=== PATIENT | female | born 1975 | race Caucasian/White ===

== ENCOUNTER → 2016-06-10 | Outpatient (CLI) | payer OTHER ==
[~2016-06-10] MED LIST: ACET-1311 PO; CYAN10005 PO; CYM/30 PO; DOXE10CA PO; DULA0.5I PO; DULO1CAP40 PO; ERGO1TAB12 PO; GEMF600T3 PO; HMLI SC; INSDGI SC; INSHNI SC; INSU100I SC; INSUINJ SC; LISI-725 PO; MEDR150I IM; METF-384 PO; NORE-18 PO; OMEP40CA PO; PRAV20TA PO; PRED20TA2 PO; SULF800T23 PO
--- NOTE | 2016-06-10 11:05 | DIAGNOSTIC IMAGING REPORT ---
RIGHT PELVIS/UNILATERAL HIP 2-3 VIEW CLINICAL HISTORY: Right hip pain. COMPARISON: CT of the abdomen and pelvis March 10, 2015. FINDINGS: This exam is compromised by suboptimal penetration. The sacroiliac joints and symphysis pubis are intact. No acute pelvic or hip fracture is identified. Alignment of the right hip is anatomic. Joint spaces preserved. There is mild osteophytosis of the right hip. IMPRESSION: 1. Mild arthritis of the right hip. 2. No acute fracture within the pelvis or hips although sensitivity is diminished due to suboptimal penetration. Electronically signed by: Yoel Drake M.D. 06/10/2016 11:03 AM
== END | disposition home or self-care (01) ==
LOC: C.RDSM 17:04
PROVIDERS: ATTEND Family Medicine
DX: M16.11 Unilateral primary osteoarthritis, right hip (principal)

== ENCOUNTER → 2016-07-09 | Outpatient (CLI) | payer OTHER ==
[2016-07-09 14:42] LABS: ALT/SGPT 24 U/L (12-78); BLOOD UREA NITROGEN 12 mg/dl (7-18); BUN/CREATININE RATIO 11.1 (10-20); CALCIUM 8.9 mg/dl (8.5-10.1); CARBON DIOXIDE 21 mmol/L (21-32); CHLORIDE 107 mmol/L (98-107); GLUCOSE 173 mg/dl (70-99); POTASSIUM 4.1 mmol/L (3.5-5.1); SODIUM 141 mmol/L (136-145)
[2016-07-09 14:52] LABS: ALB/GLOB RATIO 0.9 (0.9-2); ALKALINE PHOSPHATASE 50 U/L (45-117); AST/SGOT 17 U/L (15-37); THYROID STIMULATING HORMONE 0.752 uIu/ml (0.300-4.500)
[2016-07-10 06:06] LABS: ESTIMATED AVERAGE GLUCOSE 166 mg/dl; HA1C FLAG Normal (Normal)
== END | disposition home or self-care (01) ==
LOC: C.LAB1850 12:37
PROVIDERS: ATTEND Family Medicine
DX: E11.65 Type 2 diabetes mellitus with hyperglycemia (principal); E53.8 Deficiency of other specified B group vitamins; N91.2 Amenorrhea, unspecified; E55.9 Vitamin D deficiency, unspecified

== ENCOUNTER → 2016-08-04 | Outpatient (CLI) | payer OTHER ==
--- NOTE | 2016-08-04 14:37 | MAMMOGRAPHY REPORT ---
BILATERAL DIGITAL SCREENING MAMMOGRAM WITH CAD: 08/04/2016 CLINICAL HISTORY: Routine screening examination. TECHNIQUE: Bilateral CC and MLO views were obtained. Current study was also evaluated with a Comput er Aided Detection (CAD) system. COMPARISON: Comparison is made to exams dated: 03/09/2015 mammogram and 08/24/2013 mammogram - [facility]. BREAST COMPOSITION: The tissue of both breasts is almost entirely fatty. FINDINGS: There are stable benign calcifications in both breasts. No suspicious mass, architectur al distortion or cluster of microcalcifications is seen. IMPRESSION: ACR BI-RADS CATEGORY 2: BENIGN There is no mammographic evidence of malignancy. A 1 year screening mammogram is recommended. The p atient will receive written notification of the results. Approximately 10% of breast cancers are not detected with mammography. A negative mammographic repor t should not delay biopsy if a clinically suggestive mass is present. Janeth Herbert M.D. ay/:08/04/2016 13:47:41 [employer] Manager Consultant: Lupe RODRÍGUEZ(Eli)(Peter), [facility] letter sent: Normal 1/2 BI-RADS Code: ACR BI-RADS Category 2: Benign
== END | disposition home or self-care (01) ==
LOC: C.MAMM 10:36
PROVIDERS: ATTEND Internal Medicine
DX: Z12.31 Encounter for screening mammogram for malignant neoplasm of breast (principal)

== ENCOUNTER → 2016-08-11 | Outpatient (CLI) | payer OTHER ==
--- NOTE | 2016-08-12 05:46 | SPLIT NIGHT TECHNICIAN REPORT ---
[facility] Split Night Polysomnogram - Glaucoma Specialist Report Study date: 08/11/2016 Referring Physician: Name: DEEPA BUENROSTRO Glaucoma Specialist: ROXANNE Wade. Date of : 1975 Height: 41 years, Height 5' 0" Sex: Female Weight: 350 lbs Age: 41 Neck Circum: 21.5 inches BMI: Medications: 68.35 Gemfibrozil 600 mg, Cymbalta 60 mg, Pravastatin 40 mg, Prilosec 40 mg, Doxepin 10 mg, Insulin, Vitamin B-12, Lisinopril 20 mg, Metformin 1000 mg Patient History 41 yr. old female here for a possible split night sleep study with ETC02. Patient complains of snoring. ESS 18/20 (does not drive) Parameters Monitored NPSG: E1-M2, E2-M1, Fp1-M2, Fp2-M1, F3-M2, F4-M2, F4-M1, C3-M2, C4-M2, C4-M1, O1-M2, O2-M2, O2-M1, T3-M2, T4-M1, P3-M2, P4-M1, CHIN1, CHIN2, HR, EKG, Legs, PFLOW, SNOR, FLOW, CFLOW, Tidal Volume, THOR, ABDO, SpO2, PLTH, CPRESS, ETCO2 Wave, ETCO2, pH SLEEP SUMMARY DATA DIAGNOSTIC TREATMENT Lights Out: 9:25:53 PM NONE Lights On: 12:27:53 AM 5:27:23 AM Total Recording Time (TRT): 181.0 min. 294.0 min. Total Sleep Time (TST): 65.5 min. 281.5 min. NREM Time: 65.5 min. 229.5 min. REM Time: 0.0 min. 52.0 min. Sleep Period Time (SPT): 71.5 min. 291.0 min. Sleep Efficiency (SE): 36 % 96 % Sleep Latency: 109.5 min. NONE min. Arousal Index: 48.5 4.7 PAP Treatment Levels: 4, 5, 6, 7, 8, 9, 10, 11, 12 * Optimal Pressure(s) SLEEP STAGING DATA DIAGNOSTIC TREATMENT Duration (min) TST % Duration (min) TST % Stage Wake: 115.5 min. -- 12.5 min. -- WASO: 7.0 min. -- 9.5 min. -- NREM: 65.5 min. 100 % 229.5 min. 82 % Stage N1: 8.5 min. 13 % 6.0 min. 2 % Stage N2: 57.0 min. 87 % 130.5 min. 46 % Stage N3: 0.0 min. 0 % 93.0 min. 33 % REM: 0.0 min. 0 % 52.0 min. 18 % POSITIONAL DATA Event Count Index Event Count Index Supine: 139 134.3 67 14.3 Supine NREM: 139 134.3 64 16.7 Supine REM: N/A N/A 3 3 Non-Supine: 1 17.5 N/A N/A Non-Supine NREM: 1 17.5 N/A N/A Non-Supine REM: N/A N/A N/A N/A AROUSAL SUMMARY DATA: Event Count Index Event Count Index Apnea Arousals: 0 0.0 1 3.8 Hypopnea Arousals: 32 29.3 1 0.2 Snore Arousals: 12 11.0 7 1.5 PLM Arousals: 2 1.8 0 0.0 Non-Specific Arousals: 5 4.6 6 1.3 Total Arousals: 53 48.5 22 4.7 MYOCLONUS (PLM) Event Count Index Event Count Index PLM: 2 1.8 0 0.0 PLM AROUSAL: 2 1.8 0 0.0 PLM W/O AROUSAL 2 1.8 0 0.0 PLM W/RESP EVENT 0 0.0 0 0.0 MYOCLONUS (PLM) Event Count Index Event Count Index LM: 3 19.2 20 4.3 LM AROUSAL: 3 2.7 7 1.5 LM W/O AROUSAL LM W/RESP EVENT LM NON SPECIFIC 9 8.2 12 2.6 HEART RATE DATA DIAGNOSTIC TREATMENT Sleep (bpm): 93 86 REM (bpm): N/A 94 NREM (bpm): 91 94 Tachycardia Count: 0 0 Tachycardia Duration: 0.00 0 Bradycardia Count: 0 0 Bradycardia Duration: 0.00 0 DIAGNOSTIC PORTION TREATMENT PORTION RESPIRATORY DATA Event Count Index Event Count Index AHI: -- 128.2 -- 14.3 RDI: -- 128.2 -- 14 Obstructive Apnea: 0 0.0 12 2.6 Central Apnea: 0 0.0 6 1.3 Mixed Apnea: 0 0.0 0 0.0 Hypopnea: 140 128.2 49 10.4 RERA: 0 0.0 0 0.0 Total Apneas: 0 0.0 18 3.8 RESPIRATORY DATA REM NREM SLEEP REM NREM SLEEP Supine Position: Obstructive Apneas: N/A 0 0 0 12 12 Central Apneas: N/A 0 0 0 6 6 Mixed Apneas: N/A 0 0 0 0 0 Hypopneas: N/A 139 139 3 46 49 RERA N/A 0 0 0 0 0 Total Supine Events: N/A 139 139 3 64 67 Supine AHI: N/A 134.3 134.3 3 16.7 14.3 Supine RDI: N/A 134.3 134.3 3.5 16.7 14.3 REM NREM SLEEP REM NREM SLEEP Non-Supine Position: Obstructive Apneas: N/A 0 0 N/A N/A N/A Central Apneas: N/A 0 0 N/A N/A N/A Mixed Apneas: N/A 0 0 N/A N/A N/A Hypopneas: N/A 1 1 N/A N/A N/A RERA N/A 0 0 N/A N/A N/A Total Supine Events: N/A 1 1 N/A N/A N/A Supine AHI: N/A 17.5 17.5 N/A N/A N/A Supine RDI: N/A 17.5 17.5 N/A N/A N/A OXYGEN DESTAURATION DATA: Event Count Index Event Count Index REM Desaturations: N/A N/A 5 5.8 NREM Desaturations: 162 148.4 81 21.2 SNORE DATA DIAGNOSTIC TREATMENT Snore Time: 6.2 12:36:23 AM Snore TST%: 4 9 Snore Arousal Count: 12 7 Snore Arousal Index: 11.0 1.5 Desaturation Event Summary: Minimum %SpO2 Event Count Mean/Min/Max Duration(sec.) Desaturation Index % Time In Bed > 90 277 11.8 / 4.0 / 59.3 38.0 92.5 86 - 90 9 6.2 / 4.0 / 10.0 18.2 6.3 81 - 85 0 N/A 0.0 1.2 76 - 80 0 N/A 0.0 0.1 71 - 75 0 N/A 0.0 0.0 66 - 70 0 N/A 0.0 0.0 61 - 65 0 N/A 0.0 0.0 56 - 60 0 N/A 0.0 0.0 51 - 55 0 N/A 0.0 0.0 < 50 0 N/A 0.0 0.0 OXYGEN SATURATION DATA DIAGNOSTIC TREATMENT SpO2 Mean Sleep: 91 % 94 % SpO2 Mean REM: N/A % 94 % SpO2 Mean NREM: 91 % 94 % SpO2 Minimum Sleep: 80 % 84 % SpO2 Minimum REM: N/A % 89 % SpO2 Minimum NREM: 80 % 84 % Time Below 90% (TST): 18.0 3.8 Time Below 88% (TST): 10.1 0.4 Total REM NREM Awake <50% 0.0 min. 0.0 min. 0.0 min. 0.0 min. 51 - 60% 0.0 min. 0.0 min. 0.0 min. 0.0 min. 61 - 70% 0.0 min. 0.0 min. 0.0 min. 0.0 min. 71 - 80% 0.3 min. 0.0 min. 0.3 min. 0.0 min. 81 - 90% 35.2 min. 0.8 min. 31.1 min. 3.2 min. 91 - 100% 437.6 min. 51.2 min. 261.6 min. 124.8 min. Average 93 94 93 93 Minimum SpO2 80 89 80 82 Desaturation Event Index 35.6 5.8 49.4 16.4 # Desat. Events below 89% 127 N/A 125 2 Time(%) with Saturation below 89% 3.1 0.0 3.1 0.1 Time(min.) with Saturation below 89% 14.9 0.0 14.6 0.3 Recording Glaucoma Specialist Comments: MS. Buenrostro slept in the right and supine positions. No cardiac arrhythmia or PLMs noted. No bruxism noted. Snoring was noted and scored as a 5 on a scale of 0 through 5. (0=no snoring, 5=snoring loud enough to be heard through a closed door or down the patel way) At 12:33 am, MS. Buenrostro has met specific Split-Night criteria during the diagnostic portion of this study. CPAP was initiated at +4 CMH2O room air and up-titrated to a optimal level of + 12 CMH2O Cflex 2 , which nearly eliminated all respiratory events and snoring. A small simplus was used during titration (she will need large headgear with a small size mask). MS. Buenrostro did not wake to use the restroomduring the night. MS. Buenrostro stated, "(Example) I did not sleep as well as I do when I am in my own bed". The final report will be interpreted and signed by a sleep physician. The completed physician report will then be placed in the patient medical record. Therapy Event: Therapy (cm H20) 0 4 5 6 7 8 9 10 11 12 Total Time at Pressure (min.) 181.0 6.5 4.8 7.3 11.4 16.2 24.9 57.1 118.2 47.6 TST at Pressure (min.) 65.5 3.5 4.8 7.3 11.4 16.2 24.9 55.1 111.2 47.1 # Periods 1 1 1 1 1 1 1 1 1 1 Sleep Onset (min.) 109.5 3.0 0.0 0.0 0.0 0.0 0.0 0.0 0.0 0.0 REM Onset (min.) N/A N/A N/A N/A N/A N/A N/A 49.9 0.0 30.1 Sleep Efficiency % 36 54 100 100 100 100 100 96 94 98 Wakefulness (%) 63.8 45.7 0.0 0.0 0.0 0.0 0.0 3.5 5.9 1.1 Wakefulness (min.) 115.5 3.0 0.0 0.0 0.0 0.0 0.0 2.0 7.0 0.5 NREM 1 (%) 4.7 23.2 0.0 6.8 0.0 0.0 0.0 1.8 0.8 4.2 NREM 1 (min.) 8.5 1.5 0.0 0.5 0.0 0.0 0.0 1.0 1.0 2.0 NREM 2 (%) 31.5 31.0 100.0 63.5 0.0 41.8 61.8 54.9 30.4 62.2 NREM 2 (min.) 57.0 2.0 4.8 4.7 0.0 6.8 15.4 31.4 35.9 29.6 NREM 3 (%) 0.0 0.0 0.0 29.7 100.0 58.2 38.2 27.1 37.2 2.1 NREM 3 (min.) 0.0 0.0 0.0 2.2 11.4 9.4 9.5 15.5 44.0 1.0 REM (%) 0.0 0.0 0.0 0.0 0.0 0.0 0.0 12.7 25.6 30.5 REM (min.) 0.0 0.0 0.0 0.0 0.0 0.0 0.0 7.2 30.3 14.5 # Arousals 53 0 2 1 1 1 0 7 6 4 Arousal Index 48.5 0.0 24.8 8.2 5.3 3.7 0.0 7.6 3.2 5.1 # Snore 265 23 42 113 237 262 385 197 101 1 Snore Index 242.7 393.8 521.5 923.1 1,247.7 971.0 929.3 214.5 54.5 1.3 AHI 128.2 102.7 136.6 8.2 31.6 44.5 16.9 10.9 5.9 3.8 AHI Supine 134.3 102.7 136.6 8.2 31.6 44.5 16.9 10.9 5.9 3.8 AHI Non-Supine 17.5 N/A N/A N/A N/A N/A N/A N/A N/A N/A NREM AHI 128.2 102.7 136.6 8.2 31.6 44.5 16.9 11.3 8.2 1.8 REM AHI N/A N/A N/A N/A N/A N/A N/A 8.3 0.0 8.3 RDI 128.2 102.7 136.6 8.2 31.6 44.5 16.9 10.9 5.9 3.8 # Obstructive 0 1 2 0 0 1 1 1 6 0 # Central Ap 0 0 0 0 0 1 0 2 3 0 # Mixed 0 0 0 0 0 0 0 0 0 0 # Hypopneas 140 5 9 1 6 10 6 7 2 3 RERAS 0 0 0 0 0 0 0 0 0 0 Total Respiratory Events 140 6 11 1 6 12 7 10 11 3 Time Below SpO2 89.00% (min.) 13.5 0.0 0.6 0.0 0.1 0.1 0.0 0.1 0.2 0.1 Mean NREM SpO2 (%) 91 92 91 92 92 92 93 93 94 95 Mean REM SpO2 (%) N/A N/A N/A N/A N/A N/A N/A 93 94 94 Mean Sleep SpO2 (%) 91 92 91 92 92 92 93 93 94 94 Min NREM SpO2 (%) 80 87 84 88 88 88 89 87 86 88 Min REM SpO2 (%) N/A N/A N/A N/A N/A N/A N/A 90 91 89 Position Supine (min.) 62.1 3.5 4.8 7.3 11.4 16.2 24.9 55.1 111.2 47.1 Position Non-supine (min.) 3.4 0.0 0.0 0.0 0.0 0.0 0.0 0.0 0.0 0.0 LM Index Sleep 21.1 17.1 12.4 0.0 0.0 3.7 4.8 5.4 4.3 2.5 LM Index NREM 21.1 17.1 12.4 0.0 0.0 3.7 4.8 6.3 5.2 3.7 LM Index REM N/A N/A N/A N/A N/A N/A N/A 0.0 2.0 0.0 Mean Heart Rate (bpm) 93 87 87 88 91 91 90 88 84 81 Min Heart Rate (bpm) 83 83 82 83 86 83 83 72 64 58
--- NOTE | 2016-08-26 09:15 | POLYSOMNOGRAPH REPORT ---
REFERRING PERSON: Dr. Rajesh Baer. GERICARE AIDE: Brooke Law. Ms. Buenrostro is a 41-year-old female, sent for a possible split-night sleep study. She complains of snoring. Her Alexander sleepiness scale score on the evening of this study is 18/20 as this patient does not drive. BMI is markedly elevated at 68.35. Following the technical and digital specifications of the [place] [employer] (AASM) a standard diagnostic polysomnogram was performed monitoring EEG, EOG, EMG (chin and leg deviations), oxygen saturation, body position, digital video, respiratory effort and airflow. The sleep Stage and event scoring was based on the AASM Manual for the Scoring of Sleep and Associated Events 2007 edition. Apneas are defined as a drop in the peak thermal sensor excursion by >90% of baseline for at least 10 seconds. Hypopneas were scored using the 4% oxygen desaturation rule ([employer]A-[employer]) and a decrease in the nasal pressure excursions by >30% of baseline for at least 10 seconds. Respiratory effort-related arousal (RERA's) is defined as a sequence of breaths lasting at least 10 seconds characterized by increasing respiratory effort or flattening of the nasal pressure waveform leading to an arousal from sleep when the sequence of breaths does not meet criteria for an apnea or hypopnea. Apnea Hypopnea index (AHI) is defined as the number of apneas and hypopneas occurring in an hour of sleep. Respiratory disturbance index (RDI) is defined as the number of apneas, hypopneas, and RERA's occurring in an hour of sleep. Ms. Buenrostro did qualify for a split-night sleep study. She was observed for 65.5 minutes of sleep time. During that time, she had 13% in N1 sleep and 87% in N2 sleep. There were 53 cortical arousals from sleep. Twelve of these arousals were due to snoring, 2 due to periodic limb movements of sleep, 5 were nonspecific and the remaining were due to hypopneic events. There were 2 periodic limb movements, neither of which resulted in arousals. Mean saturation during the diagnostic portion of this test was 91% with desaturations to 80% with respiratory events. There were no obstructive, central or mixed apneas during observation; however, there were 140 hypopneas for an apnea hypopnea index 128.2 consistent with very severe sleep apnea. Therefore, at 12:30 a.m., this patient was started on CPAP therapy. She chose a small Simplus full facemask for this titration. This is to be sized with a large head gear. Over the remainder of the night, she was titrated from a CPAP pressure of 4 to a CPAP pressure of 12. Increasing pressures improved hypopneic events. She was observed on a pressure of 12 for 47.1 minutes of supine sleep. During that time, she had 14.5 minutes of REM sleep. AHI and RDI on this pressure were both 3.8. Saturations were less than 89% for 0.1 minutes of recording time. IMPRESSION AND PLAN: 1. A 41-year-old female with morbid obesity with evidence of severe sleep apnea on this split-night sleep study. This patient did have improvement and elimination of both hypoxemia and apnea on CPAP at a pressure of 12. I would recommend that she be started on CPAP at a pressure of 12 at home. A download from her machine should be reviewed in 1 month both to check compliance as well as AHI and further pressure adjustments should occur at that time. 2. Weight loss should be strongly encouraged.
== END | disposition home or self-care (01) ==
LOC: C.NEUR 21:00
PROVIDERS: ATTEND Family Medicine
DX: R06.83 Snoring (principal); E66.01 Morbid (severe) obesity due to excess calories; R35.1 Nocturia; I10 Essential (primary) hypertension; F51.11 Primary hypersomnia; F32.9 Major depressive disorder, single episode, unspecified

== ENCOUNTER → 2016-09-30 | Outpatient (CLI) | payer OTHER ==
--- NOTE | 2016-09-30 14:39 | DIAGNOSTIC IMAGING REPORT ---
RIGHT KNEE 4 OR MORE CLINICAL HISTORY: Right knee pain COMPARISON: None. DISCUSSION: There are mild osteoarthritic changes. There are small dorsal patellar spurs. There are no acute fractures. No destructive lesions are evident. Moderate irregularity of the superior patellar pole, is unlikely to be acute. IMPRESSION: Mild osteophytic change. No evidence of acute fracture. Electronically signed by: Trung Mishra M.D. 09/30/2016 2:37 PM Dictated Date/Time: 09/30/2016 2:36 PM
== END | disposition home or self-care (01) ==
LOC: C.RDSM 13:54
PROVIDERS: ATTEND Family Medicine
DX: M25.561 Pain in right knee (principal)

== ENCOUNTER 2016-11-17 08:26 | Emergency (ER) | payer OTHER ==
[~2016-11-17] VITALS: Ht 152.4 cm; Wt 165.5 kg
[~2016-11-17 08:26] MED LIST changes: -CYM/30 PO; -DULA0.5I PO; -ERGO1TAB12 PO; -INSHNI SC; -INSU100I SC; -NORE-18 PO; -PRED20TA2 PO; -SULF800T23 PO
[2016-11-17 08:33] VITALS: TEMP 37.1; Ht 152.4 cm; Wt 165.5 kg
[2016-11-17 08:34] VITALS: O2SAT 97
[2016-11-17] MEDS ORDERED: METHYLPREDNISOLONE 125 MG VIAL IV STA (08:40)
[2016-11-17] MEDS ORDERED: ALBUT/IPRATROP 3MG/0.5MG NEB 3 ML VIAL INH ONE (08:45)
[2016-11-17 08:55] VITALS: PULSE 102; O2SAT 94
[2016-11-17 09:11] LABS: BASO % 0.8 %; BASO ABS # 0.05 K/uL (0-0.2); COMPLETE YES; EOS % 2.1 %; HEMATOCRIT 39.5 % (37-47); IG% 0.5 %; LYMPH % 28.8 %; MEAN CELL VOLUME 86.8 fL (80-100); MEAN CORPUSCULAR HEMOGLOBIN 27.9 pg (25-34); MEAN CORPUSCULAR HGB CONC 32.2 g/dl (32-36); MEAN PLATELET VOLUME 8.8 fL (7.4-10.4); MONO % 6.1 %; NEUT % 61.7 %; PLATELET COUNT 310 K/uL (130-400); RED BLOOD COUNT 4.55 M/uL (4.2-5.4); WHITE BLOOD COUNT 6.24 K/uL (4.8-10.8)
--- NOTE | 2016-11-17 09:15 | EMERGENCY ROOM VISIT NOTE ---
History Report prepared by Sriram: Sonia Rockwell Under the Supervision of: Dr. Vadim Bender M.D. First contact with patient: 08:35 Chief Complaint: RESPIRATORY PROBLEMS Stated Complaint: ILLNESS History of Present Illness The patient is a 41 year old female who presents to the Emergency Room with complaints of persistent respiratory problems that started 4 days ago. The patient came to the ED via ambulance from home and was given a DuoNeb en route. She states that the breathing treatment somewhat relieved her symptoms. The patient's boyfriend states that the patient started to feel ill 4 days ago. The patient states that she is experiencing some shortness of breath, but denies fevers, cough, sore throat, abdominal pain, and diarrhea. She states that she experienced nausea and vomiting last night. The patient has been taking DayQuil every 6 hours for the past 1.5 days without any improvement of her symptoms. She did take any DayQuil today. The patient has not eaten anything today. The patient's boyfriend states that the patient's symptoms worsened this morning, which is why they called the ambulance. Source of History: patient Onset: 4 days ago Position: chest Quality: other (Respiratory problems) Timing: other (persistent) Modifying Factors (Relieving): other (None) Associated Symptoms: + nausea, + vomiting, No fevers, No sorethroat, No cough, No abdominal pain, No diarrhea Review of Systems See HPI for pertinent positives & negatives. A total of 10 systems reviewed and were otherwise negative. Past Medical & Surgical Medical Problems: (1) History of periumbilical repair Surgical Problems: (1) History of cholecystectomy (2) History of tonsillectomy Family History Diabetes mellitus Gallbladder disease Heart disease Hypertension Social History Smoking Status: Former Smoker Drug Use: none Marital Status: in relationship Housing Status: lives with significant other Occupation Status: disabled Current/Historical Medications Scheduled Cyanocobalamin (Vitamin B-12), 1,000 MCG PO DAILY Doxepin (Sinequan), 10 MG PO HS Dulaglutide (Trulicity), 1.5 MG PO WK Duloxetine HCl (Cymbalta), 30 MG PO DAILY Ergocalciferol (Vitamin D2), 1.25 MG PO 3XWK Gemfibrozil (Lopid), 600 MG PO BID Insulin Glargine (Lantus), 120 UNITS SC QPM Insulin Human NPH (Humulin N), 100 UNITS SC QPM Insulin Lispro (Human) (Humalog), 55 UNITS SC AMPM Insulin Lispro (Human) (Humalog), 30 UNITS SC AFTERNOON Lisinopril (Zestril), 20 MG PO DAILY Metformin Hcl (Glucophage), 1,000 MG PO BIDM Norethindrone (Contraceptive) (Sharobel), 0.35 MG PO DAILY Pravastatin (Pravachol ), 40 MG PO HS Prednisone (Prednisone Tab), 0 PO DAILY Sulfamethoxazole-Trimethoprim (Bactrim Ds 800MG/160MG), 1 TAB PO BID Allergies Coded Allergies: Lactose. (Verified Allergy, Unknown, diarrhea/abdominal pain, 04/11/15) Penicillins (Verified Allergy, Unknown, AMOXICILLIN, AMPICILLIN, 05/09/13) Physical Exam Vital Signs Date Time Temp Pulse Resp B/P (MAP) Pulse Ox O2 Delivery O2 Flow Rate FiO2 11/17/16 13:37 98 16 126/74 97 11/17/16 12:37 116 11/17/16 11:30 115 114/75 92 Room Air 11/17/16 10:30 117 24 133/76 94 Room Air 11/17/16 08:55 102 20 94 Room Air 11/17/16 08:46 100 11/17/16 08:35 94 Room Air 11/17/16 08:34 97 Room Air 11/17/16 08:33 37.1 102 26 172/96 94 Room Air Physical Exam GENERAL: Patient is a healthy-appearing well-nourished female HEAD: Normocephalic atraumatic EYES: Ocular movements intact pupils equal and react to light OROPHARYNX mucous membranes are moist no exudates present no erythema or edema present NECK: Supple no nuchal rigidity CHEST: Good equal expansion LUNGS: Clear and equal to auscultation CARDIAC: Normal S1 and S2 ABDOMEN: Soft nontender no guarding BACK: No CVA tenderness EXTREMITIES: No pain upon palpation normal muscle strength in all groups no clubbing cyanosis or edema NEURO: Patient is following commands is answering questions appropriately. Alert and oriented x3 Cranial Nerves 2-12 grossly intact Medical Decision & Procedures ER Provider Diagnostic Interpretation: Radiology results as stated below per my review and radiologist interpretation: CHEST ONE VIEW PORTABLE FINDINGS: Cardiac silhouette is moderately enlarged. This has increased in size. There is mild pulmonary vascular congestion without overt edema. No pleural effusions. No pneumothorax. No new focal lung consolidations. IMPRESSION: Moderate enlargement of the cardiac silhouette which has increased in size. Mild pulmonary vascular congestion without overt edema. Electronically signed by: Lauro Mendez M.D. 11/17/2016 9:48 AM Dictated Date/Time: 11/17/2016 9:47 AM Laboratory Results 11/17/16 09:00 Red Blood Count 4.55, Mean Corpuscular Volume 86.8, Mean Corpuscular Hemoglobin 27.9, Mean Corpuscular Hemoglobin Concent 32.2, Mean Platelet Volume 8.8, Neutrophils (%) (Auto) 61.7, Lymphocytes (%) (Auto) 28.8, Monocytes (%) (Auto) 6.1, Eosinophils (%) (Auto) 2.1, Basophils (%) (Auto) 0.8, Neutrophils # (Auto) 3.85, Lymphocytes # (Auto) 1.80, Monocytes # (Auto) 0.38, Eosinophils # (Auto) 0.13, Basophils # (Auto) 0.05 11/17/16 09:00 Test 11/17/16 09:00 11/17/16 09:50 11/17/16 10:42 11/17/16 12:40 White Blood Count 6.24 K/uL (4.8-10.8) Red Blood Count 4.55 M/uL (4.2-5.4) Hemoglobin 12.7 g/dL (12.0-16.0) Hematocrit 39.5 % (37-47) Mean Corpuscular Volume 86.8 fL (80-100) Mean Corpuscular Hemoglobin 27.9 pg (25-34) Mean Corpuscular Hemoglobin Concent 32.2 g/dl (32-36) Platelet Count 310 K/uL (130-400) Mean Platelet Volume 8.8 fL (7.4-10.4) Neutrophils (%) (Auto) 61.7 % Lymphocytes (%) (Auto) 28.8 % Monocytes (%) (Auto) 6.1 % Eosinophils (%) (Auto) 2.1 % Basophils (%) (Auto) 0.8 % Neutrophils # (Auto) 3.85 K/uL (1.4-6.5) Lymphocytes # (Auto) 1.80 K/uL (1.2-3.4) Monocytes # (Auto) 0.38 K/uL (0.11-0.59) Eosinophils # (Auto) 0.13 K/uL (0-0.5) Basophils # (Auto) 0.05 K/uL (0-0.2) RDW Standard Deviation 48.5 fL (36.4-46.3) RDW Coefficient of Variation 15.2 % (11.5-14.5) Immature Granulocyte % (Auto) 0.5 % Immature Granulocyte # (Auto) 0.03 K/uL (0.00-0.02) Anion Gap 9.0 mmol/L (3-11) Est Creatinine Clear Calc Drug Dose 142.8 ml/min Estimated GFR () 113.1 Estimated GFR (Non- 97.6 BUN/Creatinine Ratio 17.1 (10-20) Calcium Level 9.0 mg/dl (8.5-10.1) Total Bilirubin 0.3 mg/dl (0.2-1) Aspartate Amino Transf (AST/SGOT) 19 U/L (15-37) Alanine Aminotransferase (ALT/SGPT) 25 U/L (12-78) Alkaline Phosphatase 57 U/L (45-117) Total Protein 7.2 gm/dl (6.4-8.2) Albumin 3.5 gm/dl (3.4-5.0) Globulin 3.7 gm/dl (2.5-4.0) Albumin/Globulin Ratio 0.9 (0.9-2) Influenza Type A (RT-PCR) Neg for Influ A (NEG) Influenza Type A Antigen Neg for Influ A (NEG) Influenza Type B Antigen Neg for Influ B (NEG) Influenza Type B (RT-PCR) Neg for Influ B (NEG) Bedside Glucose 187 mg/dl (70-90) Urine Color DK YELLOW Urine Appearance CLOUDY (CLEAR) Urine pH 5.0 (4.5-7.5) Urine Specific Howell 1.034 (1.000-1.030) Urine Protein 1+ (NEG) Urine Glucose (UA) TRACE (NEG) Urine Ketones 4+ (NEG) Urine Occult Blood NEG (NEG) Urine Nitrite NEG (NEG) Urine Bilirubin NEG (NEG) Urine Urobilinogen NEG (NEG) Urine Leukocyte Esterase NEG (NEG) Urine WBC (Auto) 1-5 /hpf (0-5) Urine RBC (Auto) 0-4 /hpf (0-4) Urine Hyaline Casts (Auto) 1-5 /lpf (0-5) Urine Epithelial Cells (Auto) >30 /lpf (0-5) Urine Bacteria (Auto) NEG (NEG) Urine Crystals CALCIUM OXALATE (NONE Urine Mucus PRESENT (NONE PRSENT) Urine Yeast (Auto) (NONE PRSENT) Labs reviewed by ED physician. Medications Administered Medications (Trade) Dose Ordered Sig/Yoni Route Start Time Stop Time Status Last Admin Dose Admin Albuterol/ Ipratropium (Duoneb) 12 ml ONE ONCE INH 11/17/16 08:45 11/17/16 08:46 DC 11/17/16 09:00 12 ML Methylprednisolone Sodium Succinate (Solu-Medrol IV) 60 mg NOW STAT IV 11/17/16 08:40 11/17/16 08:42 DC 11/17/16 09:08 60 MG Sodium Chloride 1,000 ml @ 999 mls/hr Q1H1M STAT IV 11/17/16 10:46 11/17/16 11:46 DC 11/17/16 11:14 999 MLS/HR Ketorolac Tromethamine (Toradol Inj) 30 mg NOW STAT IV 11/17/16 10:46 11/17/16 10:47 DC 11/17/16 11:13 30 MG Ondansetron HCl (Zofran Inj) 4 mg NOW STAT IV 11/17/16 10:46 11/17/16 10:47 DC 11/17/16 11:13 4 MG Miscellaneous Medication (Gi Cocktail) 24 ml NOW STAT PO 11/17/16 11:07 11/17/16 11:09 DC 11/17/16 11:16 24 ML Trimethoprim/ Sulfamethoxazole (Septra Ds 800/ 160MG Tab) 1 tab NOW STAT PO 11/17/16 12:58 11/17/16 13:00 DC 11/17/16 13:22 1 TAB Albuterol (Ventolin Hfa Inhaler) 2 puffs NOW STAT INH 11/17/16 12:58 11/17/16 13:00 DC 11/17/16 13:22 2 PUFFS ECG Indication: SOB/dyspnea Rate (beats per minute): 98 Rhythm: normal sinus Findings: no acute ischemic change, no ectopy ED Course 0836: Past medical records reviewed. The patient was evaluated in room A11. A complete history and physical examination was performed. 0840: Ordered Solu-Medrol 60 mg IV 0845: Ordered DuoNeb 12 ml INH 1046: Ordered Zofran Inj 4 mg IV, Toradol Inj 30 mg IV, Sodium Chloride 1000 ml @ 999 mls/hr IV 1102: I reassessed the patient. She is resting comfortably. 1107: Ordered GI Cocktail 24 ml PO 1258: Ordered Albuterol 2 puffs INH, Trimethoprim/Sulfamethoxazole 1 tab PO 1304: Upon reexamination the patient is doing well. I discussed results and treatment plan with the patient. She verbalizes agreement and understanding. The patient is ready for discharge. Medical Decision Differential diagnosis: Etiologies such as infections, reactive airway disease, pneumonia, pneumothorax , COPD, CHF, cardiac ischemia, pulmonary embolism, musculoskeletal, gastrointestinal, as well as others were entertained. Medication Reconciliation: I attest that I have personally reviewed the patient' s current medication list. Blood Pressure Screening: Patient was found to have an elevated blood pressure and was referred to their primary care doctor for recheck and further treatment This is a 41-year-old female who presents emergency department complaining of sore throat. The patient does not appear to be in any acute distress. She is slightly wheezing before she was given a DuoNeb breathing treatment. She was given an albuterol inhaler for home. She does appear to have urinary tract infection and therefore was started on Bactrim. I do believe that the patient is well enough to be discharged home for follow-up with her primary care physician. Patient was in agreement with the treatment plan. Impression Primary Impression: Bronchitis Additional Impression: UTI (urinary tract infection) Scribe Attestation The scribe's documentation has been prepared under my direction and personally reviewed by me in its entirety. I confirm that the note above accurately reflects all work, treatment, procedures, and medical decision making performed by me. Departure Information Dispostion Home / Self-Care Prescriptions Sulfamethoxazole-Trimethoprim (Bactrim Ds 800MG/160MG) 1 Tab Tab 1 TAB PO BID for 7 Days, #14 TAB Prov: Vadim Bender MD 11/17/16 Prednisone (Prednisone Tab) 20 Mg Tab 0 PO DAILY, #7 TAB 2 TABS DAILY FOR 2 DAYS, THEN 1 TAB DAILY FOR 2 DAYS, THEN 1/2 TAB DAILY FOR 2 DAYS. Prov: Vadim Bender MD 11/17/16 Referrals Eren Caal M.D. (PCP) Forms HOME CARE DOCUMENTATION FORM, IMPORTANT VISIT INFORMATION, WORK / SCHOOL INSTRUCTIONS Patient Instructions Bronchitis Acute, [employer] Additional Instructions Use inhaler twice every 6 hours You were found to have an elevated blood pressure today (>120 sytolic or >90 diastolic). Per medicare guidelines, you need to follow up with this blood pressure screening with your Primary Care Physician (PCP). For a new PCP call [phone]. You have been examined and treated today on an emergency basis only. This is not a substitute for, or an effort to provide, complete comprehensive medical care. It is impossible to recognize and treat all injuries or illnesses in a single emergency department visit. It is therefore important that you follow up closely with Dr Caal. Call as soon as possible for an appointment. Thank you for your time and consideration. I look forward to speaking with you again soon. Please don't hesitate to call us if you have any questions. Problem Qualifiers Additional Impression: UTI (urinary tract infection) Urinary tract infection type: site unspecified Hematuria presence: without hematuria Qualified Codes: N39.0 - Urinary tract infection, site not specified
[2016-11-17] MEDS ORDERED: INSHNI SC (09:17)
[2016-11-17] MEDS ORDERED: NORE-18 PO (09:17)
[2016-11-17] MEDS ORDERED: INSDGI SC (09:17)
[2016-11-17] MEDS ORDERED: DULA0.5I PO (09:17)
[2016-11-17] MEDS ORDERED: CYM/30 PO (09:17)
[2016-11-17] MEDS ORDERED: INSU100I SC ×2 (09:17)
[2016-11-17] MEDS ORDERED: ERGO1TAB12 PO (09:17)
[2016-11-17 09:28] LABS: BUN/CREATININE RATIO 17.1 (10-20); CREATININE 0.75 mg/dl (0.60-1.20); POTASSIUM 4.2 mmol/L (3.5-5.1)
[2016-11-17 09:31] LABS: ALB/GLOB RATIO 0.9 (0.9-2)
--- NOTE | 2016-11-17 09:50 | DIAGNOSTIC IMAGING REPORT ---
CHEST ONE VIEW PORTABLE HISTORY: Short of breath. COMPARISON: Chest 04/11/2015. FINDINGS: Cardiac silhouette is moderately enlarged. This has increased in size. There is mild pulmonary vascular congestion without overt edema. No pleural effusions. No pneumothorax. No new focal lung consolidations. IMPRESSION: Moderate enlargement of the cardiac silhouette which has increased in size. Mild pulmonary vascular congestion without overt edema. Electronically signed by: Lauro Mendez M.D. 11/17/2016 9:48 AM Dictated Date/Time: 11/17/2016 9:47 AM
[2016-11-17] MEDS ORDERED: KETOROLAC TROMETHAMINE 30 MG/ML VIAL IV STA (10:46)
[2016-11-17] MEDS ORDERED: SODIUM CHLORIDE 0.9% 1000ML 1,000 ML IV STA (10:46)
[2016-11-17] MEDS ORDERED: ONDANSETRON INJ 2 MG/ML 2 ML VIAL IV STA (10:46)
[2016-11-17] MEDS ORDERED: GI COCKTAIL PO STA (11:07)
[2016-11-17] MEDS ORDERED: LIDOCAINE HCL 2% VISC SOLN 20 ML UDC ONE (11:13)
[2016-11-17] MEDS ORDERED: ALUMINUM/MAGNESIUM SUSP 30 ML UDC ONE (11:13)
[2016-11-17] MEDS ORDERED: ALBUTEROL HFA 8 GM INHALER INH STA (12:58)
[2016-11-17] MEDS ORDERED: SULFAMETHOXAZOLE/TRIMETHOPRIM DS 800/160MG TAB PO STA (12:58)
[2016-11-17] MEDS ORDERED: SULF800T23 PO (13:03)
[2016-11-17] MEDS ORDERED: PRED20TA2 PO (13:03)
[2016-11-17 13:08] LABS: INFLUENZA A PCR Neg for Influ A (NEG); INFLUENZA B PCR Neg for Influ B (NEG)
[2016-11-17 13:08] LABS: URINE APPEARANCE CLOUDY (CLEAR); URINE BILIRUBIN NEG (NEG); URINE COLOR DK YELLOW; URINE EPITHELIAL CELL AUTO >30 /lpf (0-5); URINE NITRITE NEG (NEG); URINE SPECIFIC GRAVITY 1.034 (1.000-1.030); UROBILINOGEN NEG (NEG)
[2016-11-17 13:15] LABS: MANUAL MICROSCOPIC REQUIRED? NO; REVIEW REQ? YES
[2016-11-17 13:27] LABS: URINE MUCUS PRESENT (NONE PRSENT)
[2016-11-17 13:37] VITALS: BP 126/74; PULSE 98; O2SAT 97
== END 2016-11-17 13:39 | disposition home or self-care (01) ==
LOC: EDBD 08:26 → C.EDA 08:27
DX: J40 Bronchitis, not specified as acute or chronic (principal); N39.0 Urinary tract infection, site not specified; R11.2 Nausea with vomiting, unspecified; Z83.3 Family history of diabetes mellitus; Z82.49 Family history of ischemic heart disease and other diseases of the circulatory system; Z87.891 Personal history of nicotine dependence; Z79.4 Long term (current) use of insulin

== ENCOUNTER → 2016-12-01 | Outpatient (CLI) | payer OTHER ==
[~2016-12-01] MED LIST changes: -ACET-1311 PO; +CYM/30 PO; +DULA0.5I PO; -DULO1CAP40 PO; +ERGO1TAB12 PO; -HMLI SC; +INSHNI SC; +INSU100I SC; -INSUINJ SC; -MEDR150I IM; +NORE-18 PO; -OMEP40CA PO; +PRED20TA2 PO
--- NOTE | 2016-12-01 10:43 | DIAGNOSTIC IMAGING REPORT ---
LEFT KNEE 3 VIEWS CLINICAL HISTORY: LEFT KNEE PAIN pain COMPARISON: None. DISCUSSION: Mild degenerative change patellofemoral and medial joint compartments. Lateral joint compartment is generally well preserved. Mild soft tissue edema. No acute bony abnormality. There is no evidence for soft tissue swelling. IMPRESSION: Mild degenerative change of the medial joint compartment and patellofemoral joint. No acute bony abnormality. Electronically signed by: Bartolo Smyth M.D. 12/01/2016 10:41 AM Dictated Date/Time: 12/01/2016 10:41 AM
== END | disposition home or self-care (01) ==
LOC: C.RDSM 11:45
PROVIDERS: ATTEND Family Medicine
DX: M25.562 Pain in left knee (principal)

== ENCOUNTER → 2016-12-04 | Outpatient (CLI) | payer OTHER ==
--- NOTE | 2016-12-04 11:11 | DIAGNOSTIC IMAGING REPORT ---
ULTRASOUND LEFT LOWER EXTREMITY VENOUS CLINICAL HISTORY: Left leg pain. COMPARISON STUDY: No prior studies are available for comparison at the time of dictation. TECHNIQUE: Real-time, grayscale, and color Doppler sonography of the deep veins of the left lower extremity was performed from the inguinal crease to the calf. Compression and augmentation were utilized. FINDINGS: There is no sonographic evidence of deep venous thrombosis identified in the left lower extremity. The common femoral, superficial femoral, and popliteal veins are patent and normally compressible. The greater saphenous vein and the profunda femoris vein at the junction with the common femoral vein are clear. The visualized calf veins are patent. IMPRESSION: There is no sonographic evidence of deep venous thrombosis identified in the left lower extremity. Electronically signed by: Sancho Saleh M.D. 12/04/2016 10:40 AM Dictated Date/Time: 12/04/2016 10:38 AM
== END | disposition home or self-care (01) ==
LOC: C.ULTR 09:27
PROVIDERS: ATTEND Family Medicine
DX: M79.605 Pain in left leg (principal)

== ENCOUNTER → 2017-01-22 | Outpatient (CLI) | payer OTHER ==
[2017-01-22 12:22] LABS: BLOOD UREA NITROGEN 16 mg/dl (7-18); BUN/CREATININE RATIO 22.1 (10-20); CALCIUM 9.6 mg/dl (8.5-10.1); CARBON DIOXIDE 27 mmol/L (21-32); CHLORIDE 104 mmol/L (98-107); CHOLESTEROL 174 mg/dl (0-200); CHOLESTEROL/HDL RATIO 5.6; CREATININE 0.72 mg/dl (0.60-1.20); GLUCOSE 177 mg/dl (70-99); HDL CHOLESTEROL 31 mg/dl; LDL CHOLESTEROL CALCULATED 90 mg/dl; POTASSIUM 4.1 mmol/L (3.5-5.1); SODIUM 139 mmol/L (136-145); TRIGLYCERIDES 264 mg/dl (0-150); VERY LOW DENSITY LIPOPROT CALC 53 mg/dl
[2017-01-22 12:36] LABS: ESTIMATED AVERAGE GLUCOSE 157 mg/dl; HA1C FLAG Normal (Normal)
== END | disposition home or self-care (01) ==
LOC: C.LAB1850 10:37
PROVIDERS: ATTEND Internal Medicine
DX: E11.9 Type 2 diabetes mellitus without complications (principal); E78.1 Pure hyperglyceridemia; E55.9 Vitamin D deficiency, unspecified

== ENCOUNTER → 2017-05-18 | Outpatient (CLI) | payer OTHER ==
[2017-05-18 10:23] LABS: ESTIMATED AVERAGE GLUCOSE 146 mg/dl; HA1C FLAG Normal (Normal)
[2017-05-18 10:38] LABS: ALT/SGPT 23 U/L (12-78); BLOOD UREA NITROGEN 10 mg/dl (7-18); BUN/CREATININE RATIO 12.8 (10-20); CALCIUM 9.3 mg/dl (8.5-10.1); CARBON DIOXIDE 27 mmol/L (21-32); CHLORIDE 103 mmol/L (98-107); CHOLESTEROL 186 mg/dl (0-200); CREATININE 0.75 mg/dl (0.60-1.20); GLUCOSE 102 mg/dl (70-99); POTASSIUM 3.8 mmol/L (3.5-5.1); SODIUM 139 mmol/L (136-145); TRIGLYCERIDES 239 mg/dl (0-150); VERY LOW DENSITY LIPOPROT CALC 48 mg/dl
[2017-05-18 10:40] LABS: ALKALINE PHOSPHATASE 52 U/L (45-117); AST/SGOT 17 U/L (15-37); CHOLESTEROL/HDL RATIO 4.9; HDL CHOLESTEROL 38 mg/dl; LDL CHOLESTEROL CALCULATED 100 mg/dl
== END | disposition home or self-care (01) ==
LOC: C.LAB1850 09:06
PROVIDERS: ATTEND Internal Medicine
DX: E11.49 Type 2 diabetes mellitus with other diabetic neurological complication (principal); Z79.4 Long term (current) use of insulin; E78.5 Hyperlipidemia, unspecified; E55.9 Vitamin D deficiency, unspecified

== ENCOUNTER → 2017-10-08 | Outpatient (CLI) | payer OTHER ==
[~2017-10-08] MED LIST changes: -PRED20TA2 PO
[2017-10-08 13:31] LABS: ALBUMIN 4.1 gm/dl (3.4-5.0); ALT/SGPT 20 U/L (12-78); AST/SGOT 11 U/L (15-37); BLOOD UREA NITROGEN 14 mg/dl (7-18); CALCIUM 9.4 mg/dl (8.5-10.1); CARBON DIOXIDE 26 mmol/L (21-32); CREATININE 0.93 mg/dl (0.60-1.20); GLUCOSE 136 mg/dl (70-99); POTASSIUM 4.2 mmol/L (3.5-5.1); SODIUM 140 mmol/L (136-145)
[2017-10-08 13:41] LABS: ALKALINE PHOSPHATASE 58 U/L (45-117)
[2017-10-08 13:42] LABS: FOLLICLE STIMULAT HORMONE 28.98 IU/L
[2017-10-08 14:00] LABS: HEMOGLOBIN A1C 6.6 % (4.5-5.6)
== END | disposition home or self-care (01) ==
LOC: C.LAB1850 12:12
PROVIDERS: ATTEND Obstetrics & Gynecology
DX: N91.2 Amenorrhea, unspecified (principal); E11.49 Type 2 diabetes mellitus with other diabetic neurological complication; Z79.4 Long term (current) use of insulin; E55.9 Vitamin D deficiency, unspecified; E53.8 Deficiency of other specified B group vitamins

== ENCOUNTER 2018-09-06 20:31 | Inpatient (IN) ==
[2018-09-06] MEDS ORDERED: SODIUM CHLORIDE 0.9% 1000ML 1,000 ML IV SCH (20:45)
[2018-09-06] MEDS ORDERED: ONDANSETRON INJ 2 MG/ML 2 ML VIAL IV STA (20:45)
[2018-09-06] MEDS ORDERED: HYDROmorphone INJ 0.5 MG/0.5 ML SYR IV STA (20:45)
[2018-09-06] MEDS ORDERED: ACETAMINOPHEN 500 MG TAB PO STA (20:49)
[2018-09-06] MEDS ORDERED: SODIUM CHLORIDE 0.9% 1000ML 2,000 ML IV ONE (21:15)
[2018-09-06 21:16] LABS: Basophils # (auto) 0.06 K/uL (0-0.2); Basophils % (auto) 0.4 %; Eosinophils % (auto) 0.6 %; Hematocrit (blood only) 40.7 % (37-47); Hemoglobin 13.6 g/dL (12.0-16.0); Immature Granulocytes # (auto) 0.06 K/uL (0.00-0.02); Immature Granulocytes % (auto) 0.4 %; Lymphocytes # (auto) 3.51 K/uL (1.2-3.4); Lymphocytes % (auto) 21.7 %; Mean Corpuscular Hgb Conc 33.4 g/dL (32-36); Mean Corpuscular Volume 87.5 fL (80-100); Mean Platelet Volume 8.7 fL (7.4-10.4); Monocytes # (auto) 0.79 K/uL (0.11-0.59); Monocytes % (auto) 4.9 %; Neutrophils # (auto) 11.66 K/uL (1.4-6.5); Platelet Count 450 K/uL (130-400); RDW Coefficient of Variation 15.1 % (11.5-14.5); Red Blood Count 4.65 M/uL (4.2-5.4); White Blood Count 16.18 K/uL (4.8-10.8)
[2018-09-06] MEDS: CEFEPIME 1,000 MG in SYRINGE 0 ML IV STA ×2 (21:28→21:50)
[2018-09-06 21:31] LABS: Albumin Level 3.7 gm/dl (3.4-5.0); BUN Creatinine Ratio 12.2 (10-20); Calcium 10.1 mg/dl (8.5-10.1); Creatinine Clr Calc Pharmacy 110.9 ml/min; Est GFR (Non-African American) 79.3; Potassium 3.6 mmol/L (3.5-5.1)
[2018-09-06 21:33] LABS: Albumin Globulin Ratio 0.9 (0.9-2); Bilirubin,Total 0.3 mg/dl (0.2-1); Globulin 4.1 gm/dl (2.5-4.0); Total Protein 7.8 gm/dl (6.4-8.2)
[2018-09-06] MEDS ORDERED: IOVERSOL 100ml IV PRN (22:08)
--- NOTE | 2018-09-06 22:29 | CT Scan Report ---
CT SCAN OF THE ABDOMEN AND PELVIS WITH IV CONTRAST CLINICAL HISTORY: Generalized abdominal pain. COMPARISON STUDY: Abdominal CT dated 03/03/2018. TECHNIQUE: Following the IV administration of 93 cc of Optiray 320, CT scan of the abdomen and pelvi s is performed from the lung bases to the proximal femora. Images are reviewed in the axial, sagittal , and coronal planes. IV contrast was administered without complication. A dose lowering technique wa s utilized adhering to the principles of ALARA. The examination is significantly degraded by large zulma dy habitus, and by streak artifact from the body wall abutting the CT gantry. CT DOSE: 2474.02 mGy.cm FINDINGS: Lung bases: The heart is normal in size and without pericardial effusion. The lung bases are clear. T here is a tiny hiatal hernia. Liver: The contrast-enhanced liver is enlarged, measuring 23 cm in length. The liver demonstrates dif fusely diminished attenuation consistent with severe hepatic steatosis. There is no intrahepatic bili yaakov ductal dilatation. The hepatic veins and portal veins are patent. Gallbladder: Surgically absent noting clips in the gallbladder fossa. Spleen: Normal in size and attenuation. Pancreas: The pancreas is grossly unremarkable noting moderate fatty atrophy. Adrenal glands: There is a 1 cm myelolipoma noted in the left adrenal gland. The right adrenal gland is normal in appearance. Kidneys: The contrast enhanced kidneys are normal in size and without hydronephrosis. The kidneys enh ance symmetrically. Abdominal vasculature: The abdominal aorta is normal in course and caliber noting mild to moderate at herosclerotic calcification. Bowel: There is a large complex ventral hernia in the pelvis which contains nonobstructed loops of sm all bowel and colon. There is advanced colonic diverticulosis without CT evidence of acute diverticul itis. There is a small duodenal diverticulum. No bowel obstruction is seen. Postsurgical changes note d within a loop of small bowel contained within the hernia sac and right lower quadrant. The appendix is not visualized. Peritoneum: There is no intraperitoneal free air or abdominal ascites. Lymphadenopathy: None. Pelvic viscera: The bladder, uterus, and adnexa are normal as visualized. Skeletal structures: Mild lumbosacral spondylosis is observed. There is a hemitransitional left lumbo sacral segment. No lytic or blastic lesions are seen. IMPRESSION: 1. There are no acute infectious or inflammatory findings in the abdomen or pelvis. 2. There is a large complex ventral hernia in the pelvis which contains loops of nonobstructed small bowel and colon. 3. Advanced colonic diverticulosis without CT evidence of acute diverticulitis. 4. Hepatomegaly and severe hepatic steatosis. 5. Additional findings as above. Electronically signed by: Sancho Saleh M.D. 09/06/2018 10:27 PM
--- NOTE | 2018-09-06 22:55 | XRay Report ---
SINGLE VIEW CHEST CLINICAL HISTORY: Fever. FINDINGS: 2 AP, portable, upright chest radiographs are compared to study dated 11/17/2016. The examin ation is degraded by portable technique, large body habitus, and patient rotation. The heart is top normal for projection. The mediastinal contour is within normal limits. There is bibasilar atelectasi s. No airspace consolidation or large pleural effusion is identified. Apparent increase in density at the lung bases is related to overlying soft tissue. No pneumothorax is seen. The bony thorax is karol sly intact. IMPRESSION: No active disease in the chest. Electronically signed by: Sancho Saleh M.D. 09/06/2018 10:54 PM
[2018-09-06 23:04] LABS: Appearance Urine Clear (Clear); Bilirubin Urine Negative (Negative); Blood Urine Negative (Negative); Color Urine Yellow; Glucose Urine UA Negative (Negative); Ketones Urine Negative (Negative); Leukocyte Esterase Urine Negative (Negative); Nitrite Urine Negative (Negative); Protein Urine Negative (Negative); Specific Gravity Urine 1.016 (1.000-1.030); Urobilinogen Urine Negative (Negative); pH Urine 5.5 (4.5-7.5)
--- NOTE | 2018-09-06 23:48 | Surgery Consultation ---
Date of Consultation September 06, 2018 Assessment & Plan (1) Incisional hernia: 43-year-old super obese female with complex recurrent incisional hernia. Her abdominal pain appears to have resolved and she describes a history of nausea, vomiting, and diarrhea associated with it. Her CT scan shows no complication associated with large and complex incisional hernia. No surgical intervention indicated at this time Disposition per emergency department Call with questions or concerns (2) Super obesity: History of Present Illness Reason for Consultation: Abdominal pain History of Present Illness 43-year-old super obese female with BMI of 68 and a large known incisional hernia presented to the emergency department with abdominal pain, nausea, vomiting, and diarrhea. She had a history of small bowel resection requiring surgery in the past. She had a prior cholecystectomy and a incarcerated incisional hernia at her [place] incision in the past. It appears she is also had repair of umbilical hernia in the past. She has been followed by [facility] and is in the bariatric pathway and plan for a bariatric presurgery with subsequent hernia repair. Her pain started yesterday and has been getting progressively worse. She has been having lots of diarrhea. She presented with a fever, a white count, and a slightly elevated lactate. CT scan was performed and redemo nstrated a very large incisional hernia without evidence of any acute intra- abdominal pathology. Specifically there is no signs or symptoms of incarceration, string elation, or obstruction associated with it. Upon my arrival she states that her abdominal pain is resolved and she is feeling much better. Allergies Allergy/AdvReac Type Severity Reaction Status Date / Time Penicillins Allergy Unknown AMOXICILLIN, Verified 05/09/13 12:07 AMPICILLIN Lactose. Allergy Unknown diarrhea/abdominal Uncoded 04/11/15 16:51 pain Home Medications Home Medications Medication Instructions Recorded Confirmed Type bupropion HCl [Wellbutrin SR] 150 mg PO QAM 03/03/18 09/06/18 History cyanocobalamin (vitamin B-12) 1,000 mcg IM MONTHLY 03/03/18 09/06/18 History dulaglutide [Trulicity] 1.5 mg SUBCUT WK 03/03/18 09/06/18 History duloxetine 60 mg PO DAILY 03/03/18 09/06/18 History ergocalciferol (vitamin D2) 50,000 unit PO UD 03/03/18 09/06/18 History [Vitamin D2] gemfibrozil 600 mg PO BID 03/03/18 09/06/18 History insulin glargine [Lantus U-100 120 units SUBCUT DAILY 03/03/18 09/06/18 History Insulin] insulin lispro [Humalog U-100 30 unit SUBCUT DIRECTED 03/03/18 09/06/18 History Insulin] insulin lispro [Humalog U-100 55 units SUBCUT AMPM 03/03/18 09/06/18 History Insulin] insulin regular human [Humulin R 100 units SUBCUT QPM 03/03/18 09/06/18 History Regular U-100 Insuln] lisinopril 20 mg PO DAILY 03/03/18 09/06/18 History metformin 1,000 mg PO BIDM 03/03/18 09/06/18 History pravastatin 40 mg PO HS 03/03/18 09/06/18 History medroxyprogesterone [Provera] 10 mg PO UD 09/06/18 09/06/18 History omeprazole 40 mg PO DAILY 09/06/18 09/06/18 History Patient History Medical History Incisional hernia (Acute 05/09/13) SBO (small bowel obstruction) (Acute) Small bowel obstruction (Acute) Surgical History History of cholecystectomy (Resolved) History of tonsillectomy (Resolved) Social History Feels Safe at Home: Yes Smoking Status: Former smoker Review of Systems 10 point review systems negative except as above Physical Exam Vital Signs (Past 24 Hours): Last Vital Signs Temp 37.9 C H 09/06/18 20:39 Pulse 108 H 09/06/18 21:57 Resp 22 09/06/18 21:57 BP 154/73 H 09/06/18 21:57 Pulse Ox 94 09/06/18 21:57 Constitutional: WD/WN, vitals as above + morbidly obese Eyes: PERRL, conjunctivae normal, anicteric sclerae ENMT: external ear and nose normal, oropharynx normal Neck: trachea midline, no thyromegaly Respiratory: normal respiratory effort, lungs clear to auscultation Cardiovascular: Rate/Rhythm: regular rhythm and + tachycardic Gastrointestinal (Abdomen): Percussion/Palpation: abdomen soft and + hernia (Very large amorphous feeling hernia secondary to body habitus. No tenderness.); abdomen nontender, no guarding and abdomen not rigid Musculoskeletal: no cyanosis or clubbing, extremities motor strength 5/5 Skin: no rashes, warm and dry Neurologic: PERRL, EOMI, accommodation nl, no face palsy, no dysarthria Psychiatric: A+Ox3, euthymic affect Lymphatic: no cervical or axillary lymphadenopathy Results & Data Laboratory Results Laboratory Results - last 24 hr 09/06/18 09/06/18 09/06/18 20:58 20:58 20:58 WBC 16.18 H RBC 4.65 Hgb 13.6 Hct 40.7 MCV 87.5 MCH 29.2 MCHC 33.4 RDW Std Deviation 48.0 H RDW Coeff of Genaro 15.1 H Plt Count 450 H MPV 8.7 Immature Gran % (Auto) 0.4 Neut % (Auto) 72.0 Lymph % (Auto) 21.7 Store[place] % (Auto) 4.9 Eos % (Auto) 0.6 Baso % (Auto) 0.4 Immature Gran # (Auto) 0.06 H Neut # (Auto) 11.66 H Lymph # (Auto) 3.51 H Storey # (Auto) 0.79 H Eos # (Auto) 0.10 Baso # (Auto) 0.06 PT 10.0 INR 1.0 Sodium 138 Potassium 3.6 Chloride 104 Carbon Dioxide 25 Anion Gap 10.0 BUN 11 Creatinine 0.88 Est Cr Clr Drug Dosing 110.9 Est GFR ( Amer) 92.0 Est GFR (Non-Af Amer) 79.3 BUN/Creatinine Ratio 12.2 Glucose 153 H POC Lactic Acid Derek Calcium 10.1 Total Bilirubin 0.3 AST 10 L ALT 20 Alkaline Phosphatase 67 Total Protein 7.8 Albumin 3.7 Globulin 4.1 H Albumin/Globulin Ratio 0.9 Lipase 126 Urine Color Urine Appearance Urine pH POC Urine pH Ur Specific [place] Urine Protein POC Urine Protein Urine Glucose (UA) POC Ur Glucose (UA) Urine Ketones POC Urine Ketones Urine Blood POC Urine Blood Urine Nitrite POC Urine Nitrite Urine Bilirubin POC Urine Bilirubin Urine Urobilinogen POC Urine Urobilinogen Ur Leukocyte Esterase POC U Leukocyte Esteras POC Ur Test 04/06/2609/06/18 09/06/18 21:10 22:30 22:30 WBC RBC Hgb Hct MCV MCH MCHC RDW Std Deviation RDW Coeff of Genaro Plt Count MPV Immature Gran % (Auto) Neut % (Auto) Lymph % (Auto) Store[place] % (Auto) Eos % (Auto) Baso % (Auto) Immature Gran # (Auto) Neut # (Auto) Lymph # (Auto) [place] # (Auto) Eos # (Auto) Baso # (Auto) PT INR Sodium Potassium Chloride Carbon Dioxide Anion Gap BUN Creatinine Est Cr Clr Drug Dosing Est GFR ( Amer) Est GFR (Non-Af Amer) BUN/Creatinine Ratio Glucose POC Lactic Acid Derek 3.77 H Calcium Total Bilirubin AST ALT Alkaline Phosphatase Total Protein Albumin Globulin Albumin/Globulin Ratio Lipase Urine Color Urine Appearance Urine pH POC Urine pH 5 Ur Specific [place] Urine Protein POC Urine Protein Negative Urine Glucose (UA) POC Ur Glucose (UA) Normal Urine Ketones POC Urine Ketones 1+ (Small) H Urine Blood POC Urine Blood Negative Urine Nitrite POC Urine Nitrite Negative Urine Bilirubin POC Urine Bilirubin Negative Urine Urobilinogen POC Urine Urobilinogen Normal Ur Leukocyte Esterase POC U Leukocyte Esteras Negative POC Ur Test NEG 09/06/18 22:30 WBC RBC Hgb Hct MCV MCH MCHC RDW Std Deviation RDW Coeff of Genaro Plt Count MPV Immature Gran % (Auto) Neut % (Auto) Lymph % (Auto) [place] % (Auto) Eos % (Auto) Baso % (Auto) Immature Gran # (Auto) Neut # (Auto) Lymph # (Auto) [place] # (Auto) Eos # (Auto) Baso # (Auto) PT INR Sodium Potassium Chloride Carbon Dioxide Anion Gap BUN Creatinine Est Cr Clr Drug Dosing Est GFR ( Amer) Est GFR (Non-Af Amer) BUN/Creatinine Ratio Glucose POC Lactic Acid Derek Calcium Total Bilirubin AST ALT Alkaline Phosphatase Total Protein Albumin Globulin Albumin/Globulin Ratio Lipase Urine Color Yellow Urine Appearance Clear Urine pH 5.5 POC Urine pH Ur Specific [place] 1.016 Urine Protein Negative POC Urine Protein Urine Glucose (UA) Negative POC Ur Glucose (UA) Urine Ketones Negative POC Urine Ketones Urine Blood Negative POC Urine Blood Urine Nitrite Negative POC Urine Nitrite Urine Bilirubin Negative POC Urine Bilirubin Urine Urobilinogen Negative POC Urine Urobilinogen Ur Leukocyte Esterase Negative POC U Leukocyte Esteras POC Ur Test Diagnostic Findings CT SCAN OF THE ABDOMEN AND PELVIS WITH IV CONTRAST CLINICAL HISTORY: Generalized abdominal pain. COMPARISON STUDY: Abdominal CT dated 03/03/2018. TECHNIQUE: Following the IV administration of 93 cc of Optiray 320, CT scan of the abdomen and pelvis is performed from the lung bases to the proximal femora. Images are reviewed in the axial, sagittal, and coronal planes. IV contrast was administered without complication. A dose lowering technique was utilized adhering to the principles of ALARA. The examination is significantly degraded by large body habitus, and by streak artifact from the body wall abutting the CT gantry. CT DOSE: 2474.02 mGy.cm FINDINGS: Lung bases: The heart is normal in size and without pericardial effusion. The lung bases are clear. There is a tiny hiatal hernia. Liver: The contrast-enhanced liver is enlarged, measuring 23 cm in length. The liver demonstrates diffusely diminished attenuation consistent with severe hepatic steatosis. There is no intrahepatic biliary ductal dilatation. The hepatic veins and portal veins are patent. Gallbladder: Surgically absent noting clips in the gallbladder fossa. Spleen: Normal in size and attenuation. Pancreas: The pancreas is grossly unremarkable noting moderate fatty atrophy. Adrenal glands: There is a 1 cm myelolipoma noted in the left adrenal gland. The right adrenal gland is normal in appearance. Kidneys: The contrast enhanced kidneys are normal in size and without h ydronephrosis. The kidneys enhance symmetrically. Abdominal vasculature: The abdominal aorta is normal in course and caliber noting mild to moderate atherosclerotic calcification. Bowel: There is a large complex ventral hernia in the pelvis which contains nonobstructed loops of small bowel and colon. There is advanced colonic diverticulosis without CT evidence of acute diverticulitis. There is a small duodenal diverticulum. No bowel obstruction is seen. Postsurgical changes noted within a loop of small bowel contained within the hernia sac and right lower quadrant. The appendix is not visualized. Peritoneum: There is no intraperitoneal free air or abdominal ascites. Lymphadenopathy: None. Pelvic viscera: The bladder, uterus, and adnexa are normal as visualized. Skeletal structures: Mild lumbosacral spondylosis is observed. There is a hemitransitional left lumbosacral segment. No lytic or blastic lesions are seen. IMPRESSION: 1. There are no acute infectious or inflammatory findings in the abdomen or pelvis. 2. There is a large complex ventral hernia in the pelvis which contains loops of nonobstructed small bowel and colon. 3. Advanced colonic diverticulosis without CT evidence of acute diverticulitis. 4. Hepatomegaly and severe hepatic steatosis. 5. Additional findings as above.
--- NOTE | 2018-09-07 00:16 | Emergency Department Note ---
Entered by Segundo Cleaning acting as a scribe for Genaro Wilson DO History of Present Illness General Chief complaint: Abdominal Pain Stated complaint: AB PAIN Source: patient Limitations: no limitations History of Present Illness Provider complaint: ABD Pain Onset (ago): month(s) (5) Location: abdomen Pain Consistency: + other (worsening) Quality: + other (hernia pain) Associated symptoms: + nausea/vomiting (no vomiting) Treatments prior to arrival: none The patient is a 43 year old female who presents to the Emergency Room with complaints of worsening pain to her abdomen. The patient states that she has had a known abdominal hernia for the past 5 months. Her pain is now acutely worsened and is localized to the left lower quadrant. The patient also complains of nausea and cough, but denies any vomiting or runny nose. She denies any urinary complaints. She has a history of cholecystectomy and small bowel obstruction. No other exacerbating or remitting factors. Pain has been persistent and is sharp stabbing in the left lower quadrant. No significant radiation. Home Medications Home Medications Medication Instructions Recorded Confirmed Type bupropion HCl [Wellbutrin SR] 150 mg PO QAM 03/03/18 09/06/18 History cyanocobalamin (vitamin B-12) 1,000 mcg IM MONTHLY 03/03/18 09/06/18 History dulaglutide [Trulicity] 1.5 mg SUBCUT WK 03/03/18 09/06/18 History duloxetine 60 mg PO DAILY 03/03/18 09/06/18 History ergocalciferol (vitamin D2) 50,000 unit PO UD 03/03/18 09/06/18 History [Vitamin D2] gemfibrozil 600 mg PO BID 03/03/18 09/06/18 History insulin glargine [Lantus U-100 120 units SUBCUT DAILY 03/03/18 09/06/18 History Insulin] insulin lispro [Humalog U-100 30 unit SUBCUT DIRECTED 03/03/18 09/06/18 History Insulin] insulin lispro [Humalog U-100 55 units SUBCUT AMPM 03/03/18 09/06/18 History Insulin] insulin regular human [Humulin R 100 units SUBCUT QPM 03/03/18 09/06/18 History Regular U-100 Insuln] lisinopril 20 mg PO DAILY 03/03/18 09/06/18 History metformin 1,000 mg PO BIDM 03/03/18 09/06/18 History pravastatin 40 mg PO HS 03/03/18 09/06/18 History medroxyprogesterone [Provera] 10 mg PO UD 09/06/18 09/06/18 History omeprazole 40 mg PO DAILY 09/06/18 09/06/18 History Allergies Allergy/AdvReac Type Severity Reaction Status Date / Time Penicillins Allergy Unknown AMOXICILLIN, Verified 05/09/13 12:07 AMPICILLIN Lactose. Allergy Unknown diarrhea/abdominal Uncoded 04/11/15 16:51 pain Past Med/Surg History Medical History Incisional hernia (Acute 05/09/13) SBO (small bowel obstruction) (Acute) Small bowel obstruction (Acute) Surgical History History of cholecystectomy (Resolved) History of tonsillectomy (Resolved) Social History Feels Safe at Home: Yes Smoking Status: Former smoker Review of Systems See HPI for pertinent positives & negatives. and A total of 10 systems reviewed and were otherwise negative Physical Exam Vital Signs Vital Signs - 24 hr 09/06/18 20:39 09/06/18 21:57 Temperature 37.9 C H Temperature Source Oral Sepsis Recent Fever Within 48 Hours No Sepsis New/Unexplained Change in Mental Status No Sepsis Action Taken by Nursing No Action Required Pulse Rate 121 H Pulse Rate [Bilateral] 108 H Pulse Rhythm Regular Pulse Rhythm [Bilateral] Regular Pulse Strength Normal Pulse Strength [Bilateral] Normal Respiratory Rate 24 22 Respiratory Effort / Characteristics Non-Labored Spontaneous Non-Labored Spontaneous Respiratory Depth Normal Normal Respiratory Pattern Regular Regular Blood Pressure 141/101 H Blood Pressure [Right Arm] 154/73 H Blood Pressure Mean 114 Blood Pressure Mean [Right Arm] 100 Blood Pressure Position Sitting Blood Pressure Position [Right Arm] Sitting Pulse Oximetry 97 94 Oxygen Delivery Method Room Air Room Air GENERAL: Sitting up in bed, alert, disheveled, no distress, non-toxic EYE EXAM: normal conjunctiva. OROPHARYNX: no exudate, no erythema, lips, buccal mucosa, and tongue normal and mucous membranes are moist NECK: supple, no nuchal rigidity, no adenopathy, non-tender LUNGS: Clear to auscultation. Normal chest wall mechanics HEART: no murmurs, S1 normal and S2 normal ABDOMEN: abdomen soft, tender over the left mid-abdomen with reducible hernia present, normo-active bowel sounds. BACK: Back is symmetrical on inspection and there is no deformity, no midline tenderness, no CVA tenderness. SKIN: no rashes and no bruising UPPER EXTREMITIES: upper extremities are grossly normal. LOWER EXTREMITIES: No pitting edema. NEURO EXAM: Normal sensorium, cranial nerves II-XII grossly intact, normal speech, no gross weakness of arms, no gross weakness of legs. Course ED COURSE: Vital signs were reviewed and showed hypertension, fever, and tachycardia. The patients medical record was reviewed The above diagnostic studies were performed and reviewed. ED treatments and interventions as stated above. 2039: The patient was evaluated in room A10. A complete history and physical examination was performed. 2234: I discussed the case with Dr. Khan - General Surgery. He reviewed the images, and does not believe it to be related to hernia. 2241: I reviewed the patient's case with Dr. [place] - [facility]. He will evaluate the patient for further management. Administered Medications Ioversol (Optiray 320 100ml) 93 ml IV ONCE PRN PRN Reason: Interaction Checking Stop: 09/10/18 22:07 Last Admin: 09/06/18 22:09 Dose: 93 ml Documented by: [id number] Discontinued Medications Acetaminophen (Tylenol) 1,000 mg PO NOW STA Stop: 09/06/18 20:50 Last Admin: 09/06/18 21:13 Dose: 1,000 mg Documented by: [id number] Sodium Chloride (Nss 1000ml) 1,000 mls @ 999 mls/hr IV .Q1H1M TOMY Stop: 09/06/18 21:45 Last Infusion: 09/06/18 22:37 Dose: 0 mls/hr Documented by: [id number] Admin: 09/06/18 21:14 Dose: 999 mls/hr Documented by: [id number] Cefepime HCl 1,000 mg/ Syringe 11.3 mls @ 5.5 mls/min IV NOW STA Stop: 09/06/18 21:17 Last Admin: 09/06/18 21:50 Dose: 5.5 mls/min Documented by: [id number] Sodium Chloride (Nss 1000ml) 2,000 mls @ 999 mls/hr IV .Q2H1M ONE Stop: 09/06/18 23:15 Last Infusion: 09/06/18 23:42 Dose: 0 mls/hr Documented by: [id number] Admin: 09/06/18 21:29 Dose: 999 mls/hr Documented by: [id number] Ondansetron HCl (Zofran) 4 mg IV NOW STA Stop: 09/06/18 20:46 Last Admin: 09/06/18 21:13 Dose: 4 mg Documented by: [id number] Medical Decision Making Differential Diagnosis Differential diagnosis: Etiologies such as biliary colic, cholecystitis, hepatitis, perihepatitis, pancreatitis, cardiac disease, pancreatitis, gastritis, peptic ulcer disease, appendicitis, ovarian cyst, ovarian torsion, ectopic , pelvic inflammat ory disease, cystitis, diverticulitis, mesenteric ischemia, inflammatory bowel disease, ileus, bowel obstruction, aortic pathology, shingles, as well as others were considered. Medical Records Attestation: I reviewed the patient's medical records. Home Medications Current Medication List: was personally reviewed by me Laboratory Data Attestation: I reviewed the patient's lab results. Result diagrams: 09/06/18 20:58 09/06/18 20:58 Lab Results 09/06/18 09/06/18 09/06/18 Range/Units 20:58 20:58 20:58 WBC 16.18 H (4.8-10.8) K/uL RBC 4.65 (4.2-5.4) M/uL Hgb 13.6 (12.0-16.0) g/dL Hct 40.7 (37-47) % MCV 87.5 (80-100) fL MCH 29.2 (25-34) pg MCHC 33.4 (32-36) g/dL RDW Std Deviation 48.0 H (36.4-46.3) fL RDW Coeff of Genaro 15.1 H (11.5-14.5) % Plt Count 450 H (130-400) K/uL MPV 8.7 (7.4-10.4) fL Immature Gran % (Auto) 0.4 % Neut % (Auto) 72.0 % Lymph % (Auto) 21.7 % [place] % (Auto) 4.9 % Eos % (Auto) 0.6 % Baso % (Auto) 0.4 % Immature Gran # (Auto) 0.06 H (0.00-0.02) K/uL Neut # (Auto) 11.66 H (1.4-6.5) K/uL Lymph # (Auto) 3.51 H (1.2-3.4) K/uL Shawnee # (Auto) 0.79 H (0.11-0.59) K/uL Eos # (Auto) 0.10 (0-0.5) K/uL Baso # (Auto) 0.06 (0-0.2) K/uL PT 10.0 (9.0-12.0) Seconds INR 1.0 (0.9-1.1) Sodium 138 (136-145) mmol/L Potassium 3.6 (3.5-5.1) mmol/L Chloride 104 (98-107) mmol/L Carbon Dioxide 25 (21-32) mmol/L Anion Gap 10.0 (3-11) BUN 11 (7-18) mg/dl Creatinine 0.88 (0.6-1.2) mg/dl Est Cr Clr Drug Dosing 110.9 ml/min Est GFR ( Amer) 92.0 Est GFR (Non-Af Amer) 79.3 BUN/Creatinine Ratio 12.2 (10-20) Glucose 153 H (70-99) mg/dl POC Lactic Acid Derek (0.90-1.70) mmol/L Calcium 10.1 (8.5-10.1) mg/dl Total Bilirubin 0.3 (0.2-1) mg/dl AST 10 L (15-37) U/L ALT 20 (12-78) U/L Alkaline Phosphatase 67 (45-117) U/L Total Protein 7.8 (6.4-8.2) gm/dl Albumin 3.7 (3.4-5.0) gm/dl Globulin 4.1 H (2.5-4.0) gm/dl Albumin/Globulin Ratio 0.9 (0.9-2) Lipase 126 (73-393) U/L Urine Color Urine Appearance (Clear) Urine pH (4.5-7.5) POC Urine pH (4.5-7.5) Ur Specific Bradford (1.000-1.030) Urine Protein (Negative) POC Urine Protein (Negative) Urine Glucose (UA) (Negative) POC Ur Glucose (UA) (Normal) Urine Ketones (Negative) POC Urine Ketones (Negative) Urine Blood (Negative) POC Urine Blood (Negative) Urine Nitrite (Negative) POC Urine Nitrite (Negative) Urine Bilirubin (Negative) POC Urine Bilirubin (Negative) Urine Urobilinogen (Negative) POC Urine Urobilinogen (Normal) Ur Leukocyte Esterase (Negative) POC U Leukocyte Esteras (Negative) POC Ur Test (NEG) 09/06/18 09/06/18 09/06/18 Range/Units 21:10 22:30 22:30 WBC (4.8-10.8) K/uL RBC (4.2-5.4) M/uL Hgb (12.0-16.0) g/dL Hct (37-47) % MCV (80-100) fL MCH (25-34) pg MCHC (32-36) g/dL RDW Std Deviation (36.4-46.3) fL RDW Coeff of Genaro (11.5-14.5) % Plt Count (130-400) K/uL MPV (7.4-10.4) fL Immature Gran % (Auto) % Neut % (Auto) % Lymph % (Auto) % [place] % (Auto) % Eos % (Auto) % Baso % (Auto) % Immature Gran # (Auto) (0.00-0.02) K/uL Neut # (Auto) (1.4-6.5) K/uL Lymph # (Auto) (1.2-3.4) K/uL Shawnee # (Auto) (0.11-0.59) K/uL Eos # (Auto) (0-0.5) K/uL Baso # (Auto) (0-0.2) K/uL PT (9.0-12.0) Seconds INR (0.9-1.1) Sodium (136-145) mmol/L Potassium (3.5-5.1) mmol/L Chloride (98-107) mmol/L Carbon Dioxide (21-32) mmol/L Anion Gap (3-11) BUN (7-18) mg/dl Creatinine (0.6-1.2) mg/dl Est Cr Clr Drug Dosing ml/min Est GFR ( Amer) Est GFR (Non-Af Amer) BUN/Creatinine Ratio (10-20) Glucose (70-99) mg/dl POC Lactic Acid Derek 3.77 H (0.90-1.70) mmol/L Calcium (8.5-10.1) mg/dl Total Bilirubin (0.2-1) mg/dl AST (15-37) U/L ALT (12-78) U/L Alkaline Phosphatase (45-117) U/L Total Protein (6.4-8.2) gm/dl Albumin (3.4-5.0) gm/dl Globulin (2.5-4.0) gm/dl Albumin/Globulin Ratio (0.9-2) Lipase (73-393) U/L Urine Color Urine Appearance (Clear) Urine pH (4.5-7.5) POC Urine pH 5 (4.5-7.5) Ur Specific Bradford (1.000-1.030) Urine Protein (Negative) POC Urine Protein Negative (Negative) Urine Glucose (UA) (Negative) POC Ur Glucose (UA) Normal (Normal) Urine Ketones (Negative) POC Urine Ketones 1+ (Small) H (Negative) Urine Blood (Negative) POC Urine Blood Negative (Negative) Urine Nitrite (Negative) POC Urine Nitrite Negative (Negative) Urine Bilirubin (Negative) POC Urine Bilirubin Negative (Negative) Urine Urobilinogen (Negative) POC Urine Urobilinogen Normal (Normal) Ur Leukocyte Esterase (Negative) POC U Leukocyte Esteras Negative (Negative) POC Ur Test NEG (NEG) 09/06/18 Range/Units 22:30 WBC (4.8-10.8) K/uL RBC (4.2-5.4) M/uL Hgb (12.0-16.0) g/dL Hct (37-47) % MCV (80-100) fL MCH (25-34) pg MCHC (32-36) g/dL RDW Std Deviation (36.4-46.3) fL RDW Coeff of Genaro (11.5-14.5) % Plt Count (130-400) K/uL MPV (7.4-10.4) fL Immature Gran % (Auto) % Neut % (Auto) % Lymph % (Auto) % [place] % (Auto) % Eos % (Auto) % Baso % (Auto) % Immature Gran # (Auto) (0.00-0.02) K/uL Neut # (Auto) (1.4-6.5) K/uL Lymph # (Auto) (1.2-3.4) K/uL Shawnee # (Auto) (0.11-0.59) K/uL Eos # (Auto) (0-0.5) K/uL Baso # (Auto) (0-0.2) K/uL PT (9.0-12.0) Seconds INR (0.9-1.1) Sodium (136-145) mmol/L Potassium (3.5-5.1) mmol/L Chloride (98-107) mmol/L Carbon Dioxide (21-32) mmol/L Anion Gap (3-11) BUN (7-18) mg/dl Creatinine (0.6-1.2) mg/dl Est Cr Clr Drug Dosing ml/min Est GFR ( Amer) Est GFR (Non-Af Amer) BUN/Creatinine Ratio (10-20) Glucose (70-99) mg/dl POC Lactic Acid Derek (0.90-1.70) mmol/L Calcium (8.5-10.1) mg/dl Total Bilirubin (0.2-1) mg/dl AST (15-37) U/L ALT (12-78) U/L Alkaline Phosphatase (45-117) U/L Total Protein (6.4-8.2) gm/dl Albumin (3.4-5.0) gm/dl Globulin (2.5-4.0) gm/dl Albumin/Globulin Ratio (0.9-2) Lipase (73-393) U/L Urine Color Yellow Urine Appearance Clear (Clear) Urine pH 5.5 (4.5-7.5) POC Urine pH (4.5-7.5) Ur Specific Bradford 1.016 (1.000-1.030) Urine Protein Negative (Negative) POC Urine Protein (Negative) Urine Glucose (UA) Negative (Negative) POC Ur Glucose (UA) (Normal) Urine Ketones Negative (Negative) POC Urine Ketones (Negative) Urine Blood Negative (Negative) POC Urine Blood (Negative) Urine Nitrite Negative (Negative) POC Urine Nitrite (Negative) Urine Bilirubin Negative (Negative) POC Urine Bilirubin (Negative) Urine Urobilinogen Negative (Negative) POC Urine Urobilinogen (Normal) Ur Leukocyte Esterase Negative (Negative) POC U Leukocyte Esteras (Negative) POC Ur Test (NEG) Imaging Data Attestation: I personally reviewed and interpreted this imaging study as follows: Radiologist's Impression: CT SCAN OF THE ABDOMEN AND PELVIS WITH IV CONTRAST CLINICAL HISTORY: Generalized abdominal pain. COMPARISON STUDY: Abdominal CT dated 03/03/2018. TECHNIQUE: Following the IV administration of 93 cc of Optiray 320, CT scan of the abdomen and pelvis is performed from the lung bases to the proximal femora. Images are reviewed in the axial, sagittal, and coronal planes. IV contrast was administered without complication. A dose lowering technique was utilized adhering to the principles of ALARA. The examination is significantly degraded by large body habitus, and by streak artifact from the body wall abutting the CT gantry. CT DOSE: 2474.02 mGy.cm FINDINGS: Lung bases: The heart is normal in size and without pericardial effusion. The lung bases are clear. There is a tiny hiatal hernia. Liver: The contrast-enhanced liver is enlarged, measuring 23 cm in length. The liver demonstrates diffusely diminished attenuation consistent with severe he patic steatosis. There is no intrahepatic biliary ductal dilatation. The hepatic veins and portal veins are patent. Gallbladder: Surgically absent noting clips in the gallbladder fossa. Spleen: Normal in size and attenuation. Pancreas: The pancreas is grossly unremarkable noting moderate fatty atrophy. Adrenal glands: There is a 1 cm myelolipoma noted in the left adrenal gland. The right adrenal gland is normal in appearance. Kidneys: The contrast enhanced kidneys are normal in size and without hydronephrosis. The kidneys enhance symmetrically. Abdominal vasculature: The abdominal aorta is normal in course and caliber noting mild to moderate atherosclerotic calcification. Bowel: There is a large complex ventral hernia in the pelvis which contains nonobstructed loops of small bowel and colon. There is advanced colonic diverticulosis without CT evidence of acute diverticulitis. There is a small duodenal diverticulum. No bowel obstruction is seen. Postsurgical changes noted within a loop of small bowel contained within the hernia sac and right lower quadrant. The appendix is not visualized. Peritoneum: There is no intraperitoneal free air or abdominal ascites. Lymphadenopathy: None. Pelvic viscera: The bladder, uterus, and adnexa are normal as visualized. Skeletal structures: Mild lumbosacral spondylosis is observed. There is a hemitransitional left lumbosacral segment. No lytic or blastic lesions are seen. IMPRESSION: 1. There are no acute infectious or inflammatory findings in the abdomen or pelvis. 2. There is a large complex ventral hernia in the pelvis which contains loops of nonobstructed small bowel and colon. 3. Advanced colonic diverticulosis without CT evidence of acute diverticulitis. 4. Hepatomegaly and severe hepatic steatosis. 5. Additional findings as above. Electronically signed by: Sancho Saleh M.D. 09/06/2018 10:27 PM SINGLE VIEW CHEST CLINICAL HISTORY: Fever. FINDINGS: 2 AP, portable, upright chest radiographs are compared to study dated 11/17/2016. The examination is degraded by portable technique, large body habitus, and patient rotation. The heart is top normal for projection. The mediastinal contour is within normal limits. There is bibasilar atelectasis. No airspace consolidation or large pleural effusion is identified. Apparent increase in density at the lung bases is related to overlying soft tissue. No pneumothorax is seen. The bony thorax is grossly intact. IMPRESSION: No active disease in the chest. Electronically signed by: Sancho Saleh M.D. 09/06/2018 10:54 PM Blood Pressure Blood Pressure Findings: Elevated blood pressure Blood Pressure Disposition: further management by hospitalist [facility] Patient is a 43-year-old female who presents the ER for abdominal pain located around her hernia. It is reducible. She is morbidly obese. Upon presentation she is found to be febrile, tachycardic and hypertensive. IV was established and labs were obtained and showed a leukocytosis of 16,000. No significant anemia. INR was unremarkable. BMP was unremarkable. Lactate was significant elevated at 3.7. No transaminitis. Bilirubin lipase are normal. UA is unremarkable. is negative. Chest x-ray was unremarkable. CT abdomen pelvis shows no obstruction or incarcerated bowel. This was reviewed by general surgery. Patient was given IV fluids and IV narcotics. Patient had resolution of her belly pain. Patient was evaluated by general surgery. At this time uncertain of the true cause of the Sirs at this time but with the fever, tachycardia, leukocytosis and elevated lactate patient was discussed with the hospitalist after evaluation by general surgery to be observed. Impression & Plan Abdominal pain, SIRS (systemic inflammatory response syndrome) Discharge Plan Visit Data Chief Complaint: Abdominal Pain Stated Complaint: AB PAIN ED Provider: Genaro Wilson Discharge Problem: Abdominal pain, SIRS (systemic inflammatory response syndrome) Patient Disposition: Being Evaluated by Hospitalist Forms Stand Alone Forms: Call Back Authorization, My [facility] Prescriptions Prescriptions: No Action medroxyprogesterone [Provera] 10 mg tablet 10 mg PO UD RF: 0 omeprazole 40 mg capsule,delayed release(DR/EC) 40 mg PO DAILY RF: 0 bupropion HCl [Wellbutrin SR] 150 mg Tablet Sustained-Release 12 Hr 150 mg PO QAM RF: 0 Lantus U-100 Insulin 100 unit/mL Solution 120 units SUBCUT DAILY RF: 0 pravastatin 40 mg Tablet 40 mg PO HS RF: 0 lisinopril 20 mg Tablet 20 mg PO DAILY RF: 0 gemfibrozil 600 mg Tablet 600 mg PO BID RF: 0 cyanocobalamin (vitamin B-12) 1,000 mcg/mL Solution 1,000 mcg IM MONTHLY RF: 0 metformin 1,000 mg Tablet 1,000 mg PO BIDM RF: 0 Humulin R Regular U-100 Insuln 100 unit/mL Solution 100 units subcut QPM RF: 0 ergocalciferol (vitamin D2) [Vitamin D2] 50,000 unit Capsule 50,000 unit PO UD RF: 0 insulin lispro [Humalog U-100 Insulin] 100 unit/mL Solution 30 unit SUBCUT DIRECTED RF: 0 insulin lispro [Humalog U-100 Insulin] 100 unit/mL Solution 55 units SUBCUT AMPM RF: 0 duloxetine 60 mg Capsule,Delayed Release(Dr/Ec) 60 mg PO DAILY RF: 0 Trulicity 1.5 mg/0.5 mL Pen Injector 1.5 mg subcut WK RF: 0 Referrals Referrals: Eren Caal MD [Primary Care Provider] - Discharge Problem: Abdominal pain Qualifiers: Abdominal location: left lower quadrant Qualified Code(s): R10.32 - Left lower quadrant pain The scribe's documentation has been prepared under my direction and personally reviewed by me in its entirety. I confirm that the note above accurately reflects all work, treatment, procedures, and medical decision making performed by me.
[2018-09-07] MEDS ORDERED: ALUMINUM/MAGNESIUM SUSP 30 ML UDC PO PRN (01:29)
[2018-09-07] MEDS ORDERED: POLYETHYLENE (MIRALAX) 17 GM PACK PO PRN (01:29)
[2018-09-07] MEDS ORDERED: ONDANSETRON INJ 2 MG/ML 2 ML VIAL IV PRN (01:29)
--- NOTE | 2018-09-07 01:37 | History & Physical Report ---
Date of Service September 07, 2018 Assessment & Plan (1) SIRS (systemic inflammatory response syndrome): (2) Incisional hernia: (3) Abdominal pain: 43 year old female with morbid obesity, incisional hernia, Hx of umbilical hernia with SBO requiring surgery in 2014, DM2, HTN, HLD, depression, and GERD presents with worsening abdominal pain x 1 day. Concern for sepsis in the setting of abdominal pain: possible resolution of SBO prior to arrival in the setting of complex incisional hernia -Pain localized to LLQ region at site of hernia -WBC 16.1 with lactate of 3.7 -CT abdomen/pelvis with contrast: no acute infectious/inflammatory process, large complex ventral hernia with loops of non-obstructed small bowel and colon; diverticulosis, hepatomegaly with severe hepatic steatosis -LFT and Lipase wnl -CXR bibasilar atelectasis (likely limited due to body habitus) -CT chest ordered to rule out possible PNA -UA negative -Received 3L IVFs and cefepime in the ED -On ertapenem and flagyl for empiric coverage -Tylenol PRN for pain and Zofran PRN for nausea -Surgery consulted in the ED: no intervention at this time, uncomplicated hernia --NPO on IVFs NS 125cc/hr for possible intervention if symptoms worsen -Continue to monitor CBC and clinically HTN -Continue home Lisinopril DM -Hold home insulin regimen -On Novolog SSI -ACHS BSG checks HLD -Continue home pravastatin and gemfibrozil GERD -Continue home protonix Depression -Continue home bupropion and duloxetine NPO on IVFs NS 125cc/hr DVT prophylaxis: Lovenox SQ Code: Full Dispo: med/surg telemetry (4) DM2 (diabetes mellitus, type 2): (5) HTN (hypertension): (6) HLD (hyperlipidemia): (7) GERD (gastroesophageal reflux disease): (8) Depression: History of Present Illness Primary Care Provider: Eren Caal MD 43 year old female with hx of morbid obesity, incisional hernia, Hx of umbilical hernia with SBO requiring surgery in 2014, DM2, HTN, HLD, depression, and GERD presents with worsening abdominal pain x 1 day. Hx of hernia and was worried it might be causing her trouble again as it is located in her LLQ region where she has a hernia again. Pain started around 3pm today. A/w fever, chronic cough, nausea, diarrhea (loose, not dark or bloody) 6 episodes since yesterday. Denies any chills, cp, sob, vomiting, dysuria, hematuria. Surgical Hx: cholecystectomy and umbilical hernia repair in 2014 ED Course: elevated temp of 37.9 with tachycardia HR 100-120s, hypertensive and on RA. Found to have WBC of 16.1 with POC lactate of 3.7. BMP, LFT, Lipsae, coags, UA wnl. CXR negative. CT abdomen pelvis uncomplicated large complex ventral hernia and no acute process. Received 3L NS. Allergies Allergy/AdvReac Type Severity Reaction Status Date / Time Penicillins Allergy Unknown AMOXICILLIN, Verified 05/09/13 12:07 AMPICILLIN Lactose. Allergy Unknown diarrhea/abdominal Uncoded 04/11/15 16:51 pain Home Medications Home Medications Medication Instructions Recorded Confirmed Type bupropion HCl [Wellbutrin SR] 150 mg PO QAM 03/03/18 09/06/18 History cyanocobalamin (vitamin B-12) 1,000 mcg IM MONTHLY 03/03/18 09/06/18 History dulaglutide [Trulicity] 1.5 mg SUBCUT WK 03/03/18 09/06/18 History duloxetine 60 mg PO DAILY 03/03/18 09/06/18 History ergocalciferol (vitamin D2) 50,000 unit PO UD 03/03/18 09/06/18 History [Vitamin D2] gemfibrozil 600 mg PO BID 03/03/18 09/06/18 History insulin glargine [Lantus U-100 120 units SUBCUT DAILY 03/03/18 09/06/18 History Insulin] insulin lispro [Humalog U-100 30 unit SUBCUT DIRECTED 03/03/18 09/06/18 History Insulin] insulin lispro [Humalog U-100 55 units SUBCUT AMPM 03/03/18 09/06/18 History Insulin] insulin regular human [Humulin R 100 units SUBCUT QPM 03/03/18 09/06/18 History Regular U-100 Insuln] lisinopril 20 mg PO DAILY 03/03/18 09/06/18 History metformin 1,000 mg PO BIDM 03/03/18 09/06/18 History pravastatin 40 mg PO HS 03/03/18 09/06/18 History medroxyprogesterone [Provera] 10 mg PO UD 09/06/18 09/06/18 History omeprazole 40 mg PO DAILY 09/06/18 09/06/18 History Past Med/Surg History Medical History Incisional hernia (Acute 05/09/13) SBO (small bowel obstruction) (Acute) Small bowel obstruction (Acute) Surgical History History of cholecystectomy (Resolved) History of tonsillectomy (Resolved) Social History Preferred Language: Mongolian Communication Ability: Effective Size Changer Required: No Beliefs That Will Affect Care: None Current Living Situation: Significant Other Other Information That Helps Us Care for You: No Feels Safe at Home: Yes Safety Concerns: Feels Safe At This Time Smoking Status: Never smoker Hx Alcohol Use: No Hx Substance Use: No Review of Systems As per HPI Physical Exam Vital Signs (Past 24 Hours): Last Vital Signs Temp 37.9 C H 09/06/18 20:39 Pulse 97 H 09/07/18 01:05 Resp 22 09/07/18 01:05 BP 136/74 09/07/18 01:05 Pulse Ox 96 09/07/18 01:05 Physical Exam: General: In NAD Neuro: A&O x 4 CV: RRR, no m/r/g Pulm: CTAB, equal breath sounds bilaterally, on RA GI: +BS, very obese abdomen, TTP in LLQ region, midline abdominal scar from abdominal hernia repair and RUQ diagnal scar from cholecystectomy, no rebound TTP Extremities: no calf tenderness, no LE edema Results & Data Laboratory Results Abnormal lab results 09/06/18 09/06/18 09/06/18 Range/Units 20:58 20:58 21:10 WBC 16.18 H (4.8-10.8) K/uL RDW Std Deviation 48.0 H (36.4-46.3) fL RDW Coeff of Genaro 15.1 H (11.5-14.5) % Plt Count 450 H (130-400) K/uL Immature Gran # (Auto) 0.06 H (0.00-0.02) K/uL Neut # (Auto) 11.66 H (1.4-6.5) K/uL Lymph # (Auto) 3.51 H (1.2-3.4) K/uL Caroline # (Auto) 0.79 H (0.11-0.59) K/uL Glucose 153 H (70-99) mg/dl POC Lactic Acid Derek 3.77 H (0.90-1.70) mmol/L AST 10 L (15-37) U/L Globulin 4.1 H (2.5-4.0) gm/dl POC Urine Ketones (Negative) 09/06/18 Range/Units 22:30 WBC (4.8-10.8) K/uL RDW Std Deviation (36.4-46.3) fL RDW Coeff of Genaro (11.5-14.5) % Plt Count (130-400) K/uL Immature Gran # (Auto) (0.00-0.02) K/uL Neut # (Auto) (1.4-6.5) K/uL Lymph # (Auto) (1.2-3.4) K/uL Caroline # (Auto) (0.11-0.59) K/uL Glucose (70-99) mg/dl POC Lactic Acid Derek (0.90-1.70) mmol/L AST (15-37) U/L Globulin (2.5-4.0) gm/dl POC Urine Ketones 1+ (Small) H (Negative) Diagnostic Findings SINGLE VIEW CHEST CLINICAL HISTORY: Fever. FINDINGS: 2 AP, portable, upright chest radiographs are compared to study dated 11/17/2016. The examination is degraded by portable technique, large body habitus, and patient rotation. The heart is top normal for projection. The mediastinal contour is within normal limits. There is bibasilar atelectasis. No airspace consolidation or large pleural effusion is identified. Apparent increase in density at the lung bases is related to overlying soft tissue. No pneumothorax is seen. The bony thorax is grossly intact. IMPRESSION: No active disease in the chest. CT SCAN OF THE ABDOMEN AND PELVIS WITH IV CONTRAST CLINICAL HISTORY: Generalized abdominal pain. COMPARISON STUDY: Abdominal CT dated 03/03/2018. TECHNIQUE: Following the IV administration of 93 cc of Optiray 320, CT scan of the abdomen and pelvis is performed from the lung bases to the proximal femora. Images are reviewed in the axial, sagittal, and coronal planes. IV contrast was administered without complication. A dose lowering technique was utilized adhering to the principles of ALARA. The examination is significantly degraded by large body habitus, and by streak artifact from the body wall abutting the CT gantry. CT DOSE: 2474.02 mGy.cm FINDINGS: Lung bases: The heart is normal in size and without pericardial effusion. The lung bases are clear. There is a tiny hiatal hernia. Liver: The contrast-enhanced liver is enlarged, measuring 23 cm in length. The liver demonstrates diffusely diminished attenuation consistent with severe hepatic steatosis. There is no intrahepatic biliary ductal dilatation. The hepatic veins and portal veins are patent. Gallbladder: Surgically absent noting clips in the gallbladder fossa. Spleen: Normal in size and attenuation. Pancreas: The pancreas is grossly unremarkable noting moderate fatty atrophy. Adrenal glands: There is a 1 cm myelolipoma noted in the left adrenal gland. The right adrenal gland is normal in appearance. Kidneys: The contrast enhanced kidneys are normal in size and without hydronephrosis. The kidneys enhance symmetrically. Abdominal vasculature: The abdominal aorta is normal in course and caliber noting mild to moderate atherosclerotic calcification. Bowel: There is a large complex ventral hernia in the pelvis which contains nonobstructed loops of small bowel and colon. There is advanced colonic diverticulosis without CT evidence of acute diverticulitis. There is a small duodenal diverticulum. No bowel obstruction is seen. Postsurgical changes noted within a loop of small bowel contained within the hernia sac and right lower quadrant. The appendix is not visualized. Peritoneum: There is no intraperitoneal free air or abdominal ascites. Lymphadenopathy: None. Pelvic viscera: The bladder, uterus, and adnexa are normal as visualized. Skeletal structures: Mild lumbosacral spondylosis is observed. There is a hemitransitional left lumbosacral segment. No lytic or blastic lesions are seen. IMPRESSION: 1. There are no acute infectious or inflammatory findings in the abdomen or pelvis. 2. There is a large complex ventral hernia in the pelvis which contains loops of nonobstructed small bowel and colon. 3. Advanced colonic diverticulosis without CT evidence of acute diverticulitis. 4. Hepatomegaly and severe hepatic steatosis. 5. Additional findings as above. Code Status & VTE Plan Code Status Full VTE Prophylaxis Plan VTE Prophylaxis will be ordered: Yes Supervising Physician Co-Signing Physician Notes Attending addendum: I have physically seen this patient, have supervised the medical residents activities, and agree with the H&P unless as otherwise noted. Assessment and Plan: Abdominal pain/incisional hernia/history of SBO associated with umbilical hernia-- CT noted large complex ventral hernia with loops of nonobstructed small bowel and colon, without signs of infectious or inflammatory process. Patient was assessed by Dr. Khan from general surgery in the ED and felt to be nonsurgical. Will admit for conservative medical therapy. NPO. Received a total of 3 L of IV fluids in the ED. NSS at 125 mL's per hour. Ertapenem and Flagyl IV. Chest x-ray suggestive of possible bibasilar atelectasis, however, CTA chest ordered to assess for associated pneumonia as partial explanation of SIRS. Daily CBC with differential and chemistry panel. Remainder of orders and notations as noted. Resident Activity Tracking Resident Involvement: Resident Care Provided Care Provided: Adult Hospital Medicine (1) Abdominal pain Abdominal location: left lower quadrant Qualified Code(s): R10.32 - Left lower quadrant pain
[2018-09-07] MEDS ORDERED: GLUCAGON FOR INJ 1 MG VIAL IM PRN (02:30)
[2018-09-07] MEDS ORDERED: DEXTROSE 50% 50 ML SYRINGE IV PRN (02:30)
[2018-09-07] MEDS ORDERED: CARBOHYDRATES FOR HYPOGLYCEMIA PO PRN (02:30)
[2018-09-07] MEDS ORDERED: GLUCOSE 40% GEL 15 GM TUBE PO PRN (02:30)
[2018-09-07] MEDS ORDERED: GLUCOSE 10 TABS/TUBE PO PRN (02:30)
[2018-09-07] MEDS: SODIUM CHLORIDE 0.9% 1000ML 1,000 ML IV SCH ×3 (02:42→20:01)
[2018-09-07] MEDS: GEMFIBROZIL 600 MG TAB PO SCH ×2 (03:10→08:52)
[2018-09-07] MEDS: ERTAPENEM SODIUM 1,000 MG in SODIUM CHLORIDE 0.9% 50 ML IV SCH (03:10)
[2018-09-07] MEDS: metroNIDAZOLE 500 MG/100 ML BAG IV SCH ×3 (04:25→19:00)
--- NOTE | 2018-09-07 07:26 | CT Scan Report ---
CT chest wo con CLINICAL HISTORY: 43 years-old Female presenting with sepsis , cough, concern for pneumonia. TECHNIQUE: Multidetector CT imaging of the chest was performed without the use of intravenous contras t. IV contrast: None. One or more dose lowering techniques were used consistent with the principles o f ALARA (as low as reasonably achievable), including automatic exposure control, mA or kV adjustment to individual patient size, and/or use of iterative reconstruction. COMPARISON: Chest x-ray from 09/06/2018. CT DOSE (mGy.cm): The estimated cumulative dose is 1163.46 mGy.cm. FINDINGS: Motorcycle Tester topogram: Cholecystectomy clips. Soft tissues: Normal thyroid and thoracic inlet. No axillary, supraclavicular, mediastinal, or hilar lymphadenopathy. Normal aorta. Top normal heart size. No pericardial or pleural effusion. Cholecystec too clips. Lungs and airways: No pneumothorax. Central airways patent. Pulmonary arteries are not significantly enlarged relative to adjacent bronchi. No interlobular septal thickening. No focal infiltrate or nodu le. Musculoskeletal: Normal osseous structures. IMPRESSION: 1. No acute intrathoracic pathology. Electronically signed by: Ron Harding M.D. 09/07/2018 7:24 AM
[2018-09-07] MEDS: ENOXAPARIN INJ 40 MG/0.4 ML SYR SQ SCH (08:52)
[2018-09-07] MEDS: DULOXETINE HCL 60 MG CAP PO SCH (08:52)
[2018-09-07] MEDS: BuPROPion SR 150 MG TABCR PO SCH (08:52)
[2018-09-07] MEDS: INSULIN ASPART 100 UNITS/ML 3 ML PEN SC SCH ×4 (08:56→20:31)
[2018-09-07] MEDS ORDERED: PANTOprazole 40 MG TAB PO SCH (09:00)
--- NOTE | 2018-09-07 09:10 | Hospitalist Progress Note ---
Date of Service September 07, 2018 Assessment & Plan (1) SIRS (systemic inflammatory response syndrome): (2) Incisional hernia: 43-year-old super obese female with complex recurrent incisional hernia. Her abdominal pain appears to have resolved and she describes a history of nausea, vomiting, and diarrhea associated with it. Her CT scan shows no complication associated with large and complex incisional hernia. No surgical intervention indicated at this time Excess exact source and site of infection is difficult to interpret likely given the lack of clinical signs may still consider GI source (3) Abdominal pain: 43 year old female with morbid obesity, incisional hernia, Hx of umbilical hernia with SBO requiring surgery in 2015, DM2, HTN, HLD, depression, and GERD presents with worsening abdominal pain x 1 day. Concern for sepsis in the setting of abdominal pain: resolution of SBO prior to arrival in the setting of complex incisional hernia -Pain localized to LLQ region at site of hernia -CT abdomen/pelvis with contrast: no acute infectious/inflammatory process, large complex ventral hernia with loops of non-obstructed small bowel and colon; diverticulosis, hepatomegaly with severe hepatic steatosis -LFT and Lipase wnl -CXR bibasilar atelectasis (likely limited due to body habitus) -CT chest ruled out possible PNA -On ertapenem and flagyl for empiric coverage -Tylenol PRN for pain and Zofran PRN for nausea HTN fair to poorly controlled lisinopril DM -Hold home insulin regimen Continue sliding scale insulin as she is n.p.o. HLD hold pravastatin and gemfibrozil while n.p.o. GERD change Protonix to parenteral form Depression given small sips given there is no IV equivalent bupropion and duloxetine DVT prophylaxis: Lovenox SQ Code: Full (4) DM2 (diabetes mellitus, type 2): (5) HTN (hypertension): (6) HLD (hyperlipidemia): (7) GERD (gastroesophageal reflux disease): (8) Depression: Subjective Patient is some mild mental impairment patient complains of abdominal pain which is generalized but focal along her cody-ventral abdominal hernia area. She complains of some mild nausea with extensive review there is no other focal source of infection to explain her sepsis initial diagnosis Review of Systems ROS: well nourished well developed. Patient is morbidly obese No double vision blurry vision No problems with speech or swallowing No palpitations, chest pain or pressure No Wheezing or breathing issues Patient has diffuse abdominal pain more focal to just the left of midline line near a reducible ventral hernia, she has mild nausea but no vomiting No burning urine urine frequency or changes in color No focal joint pain or muscle pain No skin rashes or oral lesions is of some mild intertrigo No unusual bruising or bleeding No focused back pain or numbness or loss of strength Patient has definite intellect impairment Physical Exam Vital Signs (Past 24 Hours): Last Vital Signs Temp 36.9 C 09/07/18 08:00 Pulse 95 H 09/07/18 08:00 Resp 18 09/07/18 08:00 BP 152/76 H 09/07/18 08:00 Pulse Ox 96 09/07/18 08:00 the patient appeared morbidly obese Vital signs as documented. Head exam is unremarkable. normocephalic, atraumatic Neck is with trachea midline she has no lymphademopathy Lungs are clear to auscultation and percussion. But diminished Cardiac exam reveals Rhythm is regular. First and second heart sounds normal. Abdominal exam reveals normal bowel sounds, no masses, no organomegaly exam is difficult to interpret given her obesity there is a reducible would appears to be a hernia just to the left of midline line Extremities are moderately edematous and both pedal pulses are present Neurologic exam is A&Ox3, no focal deficits, strength is equal bilateral Psychologically seems neither anxious or depressed Skin is warm Dry without bruises or lesions (1) Abdominal pain Abdominal location: left lower quadrant Qualified Code(s): R10.32 - Left lower quadrant pain
[2018-09-07 10:02] LABS: Basophils # (auto) 0.04 K/uL (0-0.2); Basophils % (auto) 0.4 %; Eosinophils # (auto) 0.08 K/uL (0-0.5); Eosinophils % (auto) 0.9 %; Hematocrit (blood only) 38.7 % (37-47); Hemoglobin 12.6 g/dL (12.0-16.0); Immature Granulocytes # (auto) 0.04 K/uL (0.00-0.02); Immature Granulocytes % (auto) 0.4 %; Lymphocytes # (auto) 2.83 K/uL (1.2-3.4); Lymphocytes % (auto) 30.3 %; Mean Corpuscular Hgb Conc 32.6 g/dL (32-36); Mean Corpuscular Volume 88.4 fL (80-100); Mean Platelet Volume 8.8 fL (7.4-10.4); Monocytes # (auto) 0.53 K/uL (0.11-0.59); Monocytes % (auto) 5.7 %; Neutrophils # (auto) 5.82 K/uL (1.4-6.5); Neutrophils % (auto) 62.3 %; Platelet Count 375 K/uL (130-400); RDW Coefficient of Variation 15.3 % (11.5-14.5); RDW Standard Deviation 48.9 fL (36.4-46.3); Red Blood Count 4.38 M/uL (4.2-5.4); White Blood Count 9.34 K/uL (4.8-10.8)
[2018-09-07 10:28] LABS: Albumin Level 3.4 gm/dl (3.4-5.0); BUN Creatinine Ratio 11.9 (10-20); Creatinine Clr Calc Pharmacy 120.6 ml/min; Est GFR (African American) 101.7; Est GFR (Non-African American) 87.7
[2018-09-07 10:30] LABS: Albumin Globulin Ratio 0.9 (0.9-2); Bilirubin,Total 0.3 mg/dl (0.2-1); Globulin 3.6 gm/dl (2.5-4.0)
--- NOTE | 2018-09-07 14:45 | Surgery Progress Note ---
Date of Service September 07, 2018 Assessment & Plan (1) Incisional hernia: 43-year-old super obese female with complex recurrent incisional hernia. Her abdominal pain appears to have resolved and she describes a history of nausea, vomiting, and diarrhea associated with it. Her CT scan shows no complication associated with large and complex incisional hernia. No surgical intervention indicated at this time Follow-up with [facility] as an outpatient Surgery will sign off (2) Super obesity: Subjective 43-year-old super obese female admitted with fever, leukocytosis, nausea vomiting and diarrhea, and abdominal pain with known large incisional hernia. Today she is feeling much better tolerating clear liquids. She denies any fevers, no diarrhea or nausea, no abdominal pain. Physical Exam Vital Signs (Past 24 Hours): Last Vital Signs Temp 37 C 09/07/18 12:00 Pulse 94 H 09/07/18 12:00 Resp 20 09/07/18 12:00 BP 158/118 H 09/07/18 12:00 Pulse Ox 96 09/07/18 12:00 Constitutional: WD/WN, vitals as above Super obese Gastrointestinal (Abdomen): normal bowel sounds, soft, nontender, no hepatosplenomegaly Percussion/Palpation: + hernia (Large incisional hernia, no strangulation or obstruction) Results & Data Laboratory Results Laboratory Results - last 24 hr 09/06/18 09/06/18 09/06/18 20:58 20:58 20:58 WBC 16.18 H RBC 4.65 Hgb 13.6 Hct 40.7 MCV 87.5 MCH 29.2 MCHC 33.4 RDW Std Deviation 48.0 H RDW Coeff of Genaro 15.1 H Plt Count 450 H MPV 8.7 Immature Gran % (Auto) 0.4 Neut % (Auto) 72.0 Lymph % (Auto) 21.7 Eddy % (Auto) 4.9 Eos % (Auto) 0.6 Baso % (Auto) 0.4 Immature Gran # (Auto) 0.06 H Neut # (Auto) 11.66 H Lymph # (Auto) 3.51 H Eddy # (Auto) 0.79 H Eos # (Auto) 0.10 Baso # (Auto) 0.06 PT 10.0 INR 1.0 Sodium 138 Potassium 3.6 Chloride 104 Carbon Dioxide 25 Anion Gap 10.0 BUN 11 Creatinine 0.88 Est Cr Clr Drug Dosing 110.9 Est GFR ( Amer) 92.0 Est GFR (Non-Af Amer) 79.3 BUN/Creatinine Ratio 12.2 Glucose 153 H POC Glucose POC Lactic Acid Derek Calcium 10.1 Total Bilirubin 0.3 AST 10 L ALT 20 Alkaline Phosphatase 67 Total Protein 7.8 Albumin 3.7 Globulin 4.1 H Albumin/Globulin Ratio 0.9 Lipase 126 Urine Color Urine Appearance Urine pH POC Urine pH Ur Specific [place] Urine Protein POC Urine Protein Urine Glucose (UA) POC Ur Glucose (UA) Urine Ketones POC Urine Ketones Urine Blood POC Urine Blood Urine Nitrite POC Urine Nitrite Urine Bilirubin POC Urine Bilirubin Urine Urobilinogen POC Urine Urobilinogen Ur Leukocyte Esterase POC U Leukocyte Esteras POC Ur Test 09/06/18 09/06/18 09/06/18 21:10 22:30 22:30 WBC RBC Hgb Hct MCV MCH MCHC RDW Std Deviation RDW Coeff of Genaro Plt Count MPV Immature Gran % (Auto) Neut % (Auto) Lymph % (Auto) Eddy % (Auto) Eos % (Auto) Baso % (Auto) Immature Gran # (Auto) Neut # (Auto) Lymph # (Auto) Eddy # (Auto) Eos # (Auto) Baso # (Auto) PT INR Sodium Potassium Chloride Carbon Dioxide Anion Gap BUN Creatinine Est Cr Clr Drug Dosing Est GFR ( Amer) Est GFR (Non-Af Amer) BUN/Creatinine Ratio Glucose POC Glucose POC Lactic Acid Derek 3.77 H Calcium Total Bilirubin AST ALT Alkaline Phosphatase Total Protein Albumin Globulin Albumin/Globulin Ratio Lipase Urine Color Urine Appearance Urine pH POC Urine pH 5 Ur Specific [place] Urine Protein POC Urine Protein Negative Urine Glucose (UA) POC Ur Glucose (UA) Normal Urine Ketones POC Urine Ketones 1+ (Small) H Urine Blood POC Urine Blood Negative Urine Nitrite POC Urine Nitrite Negative Urine Bilirubin POC Urine Bilirubin Negative Urine Urobilinogen POC Urine Urobilinogen Normal Ur Leukocyte Esterase POC U Leukocyte Esteras Negative POC Ur Test NEG 09/06/18 09/07/18 09/07/18 22:30 03:51 04:29 WBC RBC Hgb Hct MCV MCH MCHC RDW Std Deviation RDW Coeff of Genaro Plt Count MPV Immature Gran % (Auto) Neut % (Auto) Lymph % (Auto) Eddy % (Auto) Eos % (Auto) Baso % (Auto) Immature Gran # (Auto) Neut # (Auto) Lymph # (Auto) Eddy # (Auto) Eos # (Auto) Baso # (Auto) PT INR Sodium Potassium Chloride Carbon Dioxide Anion Gap BUN Creatinine Est Cr Clr Drug Dosing Est GFR ( Amer) Est GFR (Non-Af Amer) BUN/Creatinine Ratio Glucose POC Glucose 71 85 POC Lactic Acid Derek Calcium Total Bilirubin AST ALT Alkaline Phosphatase Total Protein Albumin Globulin Albumin/Globulin Ratio Lipase Urine Color Yellow Urine Appearance Clear Urine pH 5.5 POC Urine pH Ur Specific [place] 1.016 Urine Protein Negative POC Urine Protein Urine Glucose (UA) Negative POC Ur Glucose (UA) Urine Ketones Negative POC Urine Ketones Urine Blood Negative POC Urine Blood Urine Nitrite Negative POC Urine Nitrite Urine Bilirubin Negative POC Urine Bilirubin Urine Urobilinogen Negative POC Urine Urobilinogen Ur Leukocyte Esterase Negative POC U Leukocyte Esteras POC Ur Test 09/07/18 09/07/18 09/07/18 07:14 09:37 09:37 WBC 9.34 RBC 4.38 Hgb 12.6 Hct 38.7 MCV 88.4 MCH 28.8 MCHC 32.6 RDW Std Deviation 48.9 H RDW Coeff of Genaro 15.3 H Plt Count 375 MPV 8.8 Immature Gran % (Auto) 0.4 Neut % (Auto) 62.3 Lymph % (Auto) 30.3 Eddy % (Auto) 5.7 Eos % (Auto) 0.9 Baso % (Auto) 0.4 Immature Gran # (Auto) 0.04 H Neut # (Auto) 5.82 Lymph # (Auto) 2.83 Eddy # (Auto) 0.53 Eos # (Auto) 0.08 Baso # (Auto) 0.04 PT INR Sodium 143 Potassium 4.0 Chloride 111 H Carbon Dioxide 24 Anion Gap 8.0 BUN 10 Creatinine 0.81 Est Cr Clr Drug Dosing 120.6 Est GFR ( Amer) 101.7 Est GFR (Non-Af Amer) 87.7 BUN/Creatinine Ratio 11.9 Glucose 91 POC Glucose 93 POC Lactic Acid Derek Calcium 9.0 Total Bilirubin 0.3 AST 11 L ALT 18 Alkaline Phosphatase 57 Total Protein 7.0 Albumin 3.4 Globulin 3.6 Albumin/Globulin Ratio 0.9 Lipase Urine Color Urine Appearance Urine pH POC Urine pH Ur Specific [place] Urine Protein POC Urine Protein Urine Glucose (UA) POC Ur Glucose (UA) Urine Ketones POC Urine Ketones Urine Blood POC Urine Blood Urine Nitrite POC Urine Nitrite Urine Bilirubin POC Urine Bilirubin Urine Urobilinogen POC Urine Urobilinogen Ur Leukocyte Esterase POC U Leukocyte Esteras POC Ur Test 09/07/18 11:49 WBC RBC Hgb Hct MCV MCH MCHC RDW Std Deviation RDW Coeff of Genrao Plt Count MPV Immature Gran % (Auto) Neut % (Auto) Lymph % (Auto) Eddy % (Auto) Eos % (Auto) Baso % (Auto) Immature Gran # (Auto) Neut # (Auto) Lymph # (Auto) Eddy # (Auto) Eos # (Auto) Baso # (Auto) PT INR Sodium Potassium Chloride Carbon Dioxide Anion Gap BUN Creatinine Est Cr Clr Drug Dosing Est GFR ( Amer) Est GFR (Non-Af Amer) BUN/Creatinine Ratio Glucose POC Glucose 101 H POC Lactic Acid Derek Calcium Total Bilirubin AST ALT Alkaline Phosphatase Total Protein Albumin Globulin Albumin/Globulin Ratio Lipase Urine Color Urine Appearance Urine pH POC Urine pH Ur Specific [place] Urine Protein POC Urine Protein Urine Glucose (UA) POC Ur Glucose (UA) Urine Ketones POC Urine Ketones Urine Blood POC Urine Blood Urine Nitrite POC Urine Nitrite Urine Bilirubin POC Urine Bilirubin Urine Urobilinogen POC Urine Urobilinogen Ur Leukocyte Esterase POC U Leukocyte Esteras POC Ur Test
[2018-09-07] MEDS ORDERED: PRAVASTATIN SOD 40 MG TAB PO SCH (21:00)
[2018-09-07] MEDS: PANTOprazole 40 MG in SYRINGE 0 ML IV SCH (21:01)
[2018-09-08] MEDS: ACETAMINOPHEN 325 MG TAB PO PRN ×2 (01:45→20:42)
[2018-09-08] MEDS: ERTAPENEM SODIUM 1,000 MG in SODIUM CHLORIDE 0.9% 50 ML IV SCH (03:06)
[2018-09-08] MEDS: metroNIDAZOLE 500 MG/100 ML BAG IV SCH ×2 (03:07→09:04)
[2018-09-08] MEDS: SODIUM CHLORIDE 0.9% 1000ML 1,000 ML IV SCH ×3 (04:17→19:52)
[2018-09-08 06:10] LABS: Hematocrit (blood only) 33.8 % (37-47); Hemoglobin 10.9 g/dL (12.0-16.0); Mean Corpuscular Hgb Conc 32.2 g/dL (32-36); Mean Corpuscular Volume 88.9 fL (80-100); Mean Platelet Volume 8.7 fL (7.4-10.4); Platelet Count 345 K/uL (130-400); RDW Coefficient of Variation 15.3 % (11.5-14.5); RDW Standard Deviation 49.2 fL (36.4-46.3)
[2018-09-08 06:41] LABS: BUN Creatinine Ratio 17.4 (10-20); Calcium 7.9 mg/dl (8.5-10.1); Est GFR (African American) 126.9; Est GFR (Non-African American) 109.5; Potassium 3.5 mmol/L (3.5-5.1)
[2018-09-08] MEDS: PANTOprazole 40 MG in SYRINGE 0 ML IV SCH (08:59)
[2018-09-08] MEDS: DULOXETINE HCL 60 MG CAP PO SCH (09:01)
[2018-09-08] MEDS: BuPROPion SR 150 MG TABCR PO SCH (09:02)
[2018-09-08] MEDS: ENOXAPARIN INJ 40 MG/0.4 ML SYR SQ SCH (09:02)
[2018-09-08] MEDS: INSULIN ASPART 100 UNITS/ML 3 ML PEN SC SCH ×4 (09:02→20:36)
[2018-09-08] MEDS ORDERED: CYANOCOBALAMIN 1000 MCG/ML VIAL IM SCH (12:00)
--- NOTE | 2018-09-08 14:21 | CT Scan Report ---
CT SCAN OF THE ABDOMEN AND PELVIS WITHOUT IV CONTRAST CLINICAL HISTORY: Generalized abdominal pain. COMPARISON STUDY: Abdominal CT scans dated 09/06/2018 and 03/03/2018. TECHNIQUE: CT scan of the abdomen and pelvis is performed from the lung bases to the proximal femora. Images are reviewed in the axial, sagittal, and coronal planes. IV contrast was not administered for this examination as per the referring clinician. Note that the examination was performed in suboptim al fashion without IV contrast. Oral contrast was utilized. A dose lowering technique was utilized ad terrance to the principles of ALARA. The examination is significantly degraded by large body habitus, a nd by streak artifact from the body wall abutting the CT gantry. CT DOSE: 2535.46 mGy.cm FINDINGS: Lung bases: The heart is normal in size and without pericardial effusion. The lung bases are clear. T here is a tiny hiatal hernia. Liver: The unenhanced liver is enlarged, measuring 23 cm in length. The liver demonstrates diffusely diminished attenuation consistent with severe hepatic steatosis. There is no intrahepatic biliary daly randell dilatation. Gallbladder: Surgically absent noting clips in the gallbladder fossa. Spleen: Normal in size and attenuation. Pancreas: The pancreas is grossly unremarkable noting moderate fatty atrophy. Adrenal glands: There is a 1 cm myelolipoma noted in the left adrenal gland. The right adrenal gland is normal in appearance. Kidneys: The unenhanced kidneys are normal in size and without hydronephrosis. No renal calculi are i dentified. There is no evidence of contour deforming renal mass lesion. Abdominal vasculature: The abdominal aorta is normal in course and caliber noting mild to moderate at herosclerotic calcification. Bowel: There is a large complex ventral hernia in the pelvis which contains nonobstructed loops of sm all bowel and colon. There is advanced colonic diverticulosis without CT evidence of acute diverticul itis. There is a small duodenal diverticulum. Enteric contrast reaches the right colon. No bowel obst ruction is seen. The appendix is not visualized. Peritoneum: There is no intraperitoneal free air or abdominal ascites. Lymphadenopathy: None. Pelvic viscera: The bladder, uterus, and adnexa are normal as visualized. Skeletal structures: Mild lumbosacral spondylosis is observed. There is a hemitransitional left lumbo sacral segment. No lytic or blastic lesions are seen. IMPRESSION: 1. There are no acute infectious or inflammatory findings in the abdomen or pelvis, and there has bee n no significant change from study performed 2 days previously. 2. There is a large complex ventral hernia in the pelvis which contains loops of nonobstructed small bowel and colon. 3. Advanced colonic diverticulosis without CT evidence of acute diverticulitis. 4. Hepatomegaly and severe hepatic steatosis. 5. Additional findings as above. Electronically signed by: Sancho Saleh M.D. 09/08/2018 2:20 PM
--- NOTE | 2018-09-08 16:15 | Hospitalist Progress Note ---
Date of Service September 08, 2018 Assessment & Plan (1) SIRS (systemic inflammatory response syndrome): This is been ruled out there is no source of infectious etiology (2) Incisional hernia: 43-year-old super obese female with complex recurrent incisional hernia. Her abdominal pain appears to have resolved and she describes a history of nausea, vomiting, and diarrhea associated with it. Her CT scan shows no complication associated with large and complex incisional hernia. No surgical intervention indicated at this time continues to be reducible Excess exact source and site of infection is difficult to interpret likely given the lack of clinical signs Repeat CAT scan with contrast shows no intra-abdominal pathology or concern for infection (3) Abdominal pain: 43 year old female with morbid obesity, incisional hernia, Hx of umbilical hernia with SBO requiring surgery in 2014, DM2, HTN, HLD, depression, and GERD presents with worsening abdominal pain x 1 day. Concern for sepsis in the setting of abdominal pain: resolution of SBO prior to arrival in the setting of complex incisional hernia - -CT abdomen/pelvis with contrast: no acute infectious/inflammatory process, large complex ventral hernia with loops of non-obstructed small bowel and colon; diverticulosis, hepatomegaly with severe hepatic steatosis -LFT and Lipase wnl -CXR bibasilar atelectasis (likely limited due to body habitus) -CT chest ruled out possible PNA -On ertapenem and flagyl for empiric coverage -Tylenol PRN for pain and Zofran PRN for nausea HTN fair to poorly controlled lisinopril DM -Hold home insulin regimen Continue sliding scale insulin as she increasing diet HLD hold pravastatin and gemfibrozil while n.p.o. GERD change Protonix to parenteral form Depression given bupropion and duloxetine DVT prophylaxis: Lovenox SQ Code: Full (4) DM2 (diabetes mellitus, type 2): (5) HTN (hypertension): (6) HLD (hyperlipidemia): (7) GERD (gastroesophageal reflux disease): (8) Depression: Subjective She has mild vague left-sided abdominal pain not near her hernia center CVA angle area she is not been febrile she is eating food. We repeated the CT scan of her abdomen with contrast there is no signs of intra-abdominal infection we will therefore stop her antibiotics Review of Systems ROS: well nourished well developed. No double vision blurry vision No problems with speech or swallowing No palpitations, chest pain or pressure No Wheezing or breathing issues Vague left-sided abdominal pain without nausea vomiting does have some loose bowel movements No burning urine urine frequency or changes in color No focal joint pain or muscle pain No skin rashes or oral lesions No unusual bruising or bleeding No focused back pain or numbness or loss of strength No changes in memory or confusion Physical Exam Vital Signs (Past 24 Hours): Last Vital Signs Temp 36.7 C 09/08/18 15:00 Pulse 90 09/08/18 15:00 Resp 19 09/08/18 15:00 BP 153/88 H 09/08/18 15:00 Pulse Ox 100 09/08/18 15:00 The patient appeared well nourished and normally developed. She is morbidly obese Vital signs as documented. Head exam is unremarkable. normocephalic, atraumatic Neck is without jugular venous distension, thyromegaly, or lymphademopathy Lungs are clear to auscultation and percussion. Cardiac exam reveals Rhythm is regular. First and second heart sounds normal. Abdominal exam reveals normal bowel sounds, mild tenderness in the left abdomen reducible hernia no masses, no organomegaly Extremities are nonedematous and both pedal pulses are present Neurologic exam is A&Ox3, no focal deficits, strength is equal bilateral Psychologically seems neither anxious or depressed she is mentally impaired Skin is warm Dry without bruises or lesions (1) Abdominal pain Abdominal location: left lower quadrant Qualified Code(s): R10.32 - Left lower quadrant pain
[2018-09-08] MEDS: PANTOprazole 40 MG TAB PO SCH (20:36)
[2018-09-08] MEDS: INSULIN GLARGINE SOLOSTAR 100 UNITS/ML 3 ML PEN SC SCH (20:37)
[2018-09-08] MEDS ORDERED: HydrALAZINE 10 MG TAB PO PRN (23:27)
[2018-09-09] MEDS: SODIUM CHLORIDE 0.9% 1000ML 1,000 ML IV SCH (03:40)
[2018-09-09 07:28] LABS: Hematocrit (blood only) 34.4 % (37-47); Hemoglobin 11.1 g/dL (12.0-16.0); Mean Corpuscular Hgb Conc 32.3 g/dL (32-36); Mean Corpuscular Volume 89.1 fL (80-100); Mean Platelet Volume 8.6 fL (7.4-10.4); Platelet Count 342 K/uL (130-400); RDW Coefficient of Variation 15.2 % (11.5-14.5); RDW Standard Deviation 49.3 fL (36.4-46.3); Red Blood Count 3.86 M/uL (4.2-5.4); White Blood Count 8.05 K/uL (4.8-10.8)
[2018-09-09 07:49] LABS: BUN Creatinine Ratio 16.6 (10-20); Calcium 7.9 mg/dl (8.5-10.1); Creatinine Clr Calc Pharmacy 150.1 ml/min; Est GFR (African American) 124.3; Est GFR (Non-African American) 107.2; Potassium 3.7 mmol/L (3.5-5.1)
[2018-09-09] MEDS: PANTOprazole 40 MG TAB PO SCH (07:49)
[2018-09-09] MEDS: BuPROPion SR 150 MG TABCR PO SCH (07:50)
[2018-09-09] MEDS: DULOXETINE HCL 60 MG CAP PO SCH (07:50)
[2018-09-09] MEDS: ENOXAPARIN INJ 40 MG/0.4 ML SYR SQ SCH (07:51)
[2018-09-09] MEDS: INSULIN ASPART 100 UNITS/ML 3 ML PEN SC SCH (08:39)
[2018-09-09] MEDS: INSULIN GLARGINE SOLOSTAR 100 UNITS/ML 3 ML PEN SC SCH (08:40)
--- NOTE | 2018-09-09 19:04 | Discharge Summary ---
Date of Service September 09, 2018 Principal Diagnosis febrile illness Discharge Exam Constitutional well developed and average body habitus Eyes no conjunctival abnormality and no scleral abnormality Neck normal visual inspection and trachea midline Respiratory normal respiratory effort; no respiratory distress Auscultation: lungs clear to auscultation bilaterally Cardiovascular RRR, no murmur, no edema Musculoskeletal no cyanosis or clubbing, extremities motor strength 5/5 Discharge Data Allergies Allergy/AdvReac Type Severity Reaction Status Date / Time Penicillins Allergy Severe seizures Verified 09/09/18 13:31 lactose Allergy Mild Abdominal Verified 09/09/18 13:31 Pain Consultations 09/06/18 22:48 ED Decision to Admit Stat 09/07/18 01:29 Consult General Surgery Stat Ordered Studies 09/06/18 20:45 CT abd pelvis IV con only Stat 09/07/18 01:29 CT chest wo con Urgent 09/08/18 10:23 CT abd pelvis oral con only Routine Hospital Course (1) SIRS (systemic inflammatory response syndrome): This is been ruled out there is no source of infectious etiology (2) Incisional hernia: 43-year-old super obese female with complex recurrent incisional hernia. Her abdominal pain appears to have resolved and she describes a history of nausea, vomiting, and diarrhea associated with it. Her CT scan shows no complication associated with large and complex incisional hernia. No surgical intervention indicated at this time continues to be reducible Excess exact source and site of infection is difficult to interpret likely given the lack of clinical signs Repeat CAT scan with contrast shows no intra-abdominal pathology or concern for infection (3) Abdominal pain: complex incisional hernia may require eventual outpt repair - -CT abdomen/pelvis with contrast: no acute infectious/inflammatory process, large complex ventral hernia with loops of non-obstructed small bowel and colon; diverticulosis, hepatomegaly with severe hepatic steatosis -LFT and Lipase wnl -CXR bibasilar atelectasis (likely limited due to body habitus) -CT chest ruled out possible PNA HTN fair to poorly controlled lisinopril DM resume home insulin regimen HLD resume pravastatin and gemfibrozil while n.p.o. GERD Protonix Depression given bupropion and duloxetine (4) DM2 (diabetes mellitus, type 2): (5) HTN (hypertension): (6) HLD (hyperlipidemia): (7) GERD (gastroesophageal reflux disease): (8) Depression: Total Time Total Time Spent Total Time Spent (In Minutes): greater than 30 minutes were required to prepare discharge Discharge Plan Discharge Items Patient Disposition: Home - Home Health Services Reason For Visit: SEPSIS Discharge Diagnosis: fever, illness, abdominal hernia Discharge Goals: Decrease discomfort, Diagnostic testing and Improve disease control Activity: Resume your previous activity Non-emergency contact: Primary Care Provider Call non-emergency contact if: you have any medication questions Follow-up/Referrals: Pro,Eern Cuba MD [Primary Care Provider] - Diet: Carb Consistent or DM2 Addtl Provider Instructions: please check your temperature at home and return to your doctor or the ER if your fever returns Prescriptions: New nystatin 100,000 unit/mL suspension 5 ml PO QID 7 Days Qty: 140 RF: 0 Continued medroxyprogesterone [Provera] 10 mg tablet 10 mg PO UD RF: 0 omeprazole 40 mg capsule,delayed release(DR/EC) 40 mg PO QAM RF: 0 bupropion HCl [Wellbutrin SR] 150 mg Tablet Sustained-Release 12 Hr 150 mg PO QAM RF: 0 Lantus U-100 Insulin 100 unit/mL Solution 120 units SUBCUT HS RF: 0 pravastatin 40 mg Tablet 40 mg PO HS RF: 0 lisinopril 20 mg Tablet 20 mg PO QAM RF: 0 gemfibrozil 600 mg Tablet 600 mg PO BID RF: 0 cyanocobalamin (vitamin B-12) 1,000 mcg/mL Solution 1,000 mcg IM MONTHLY RF: 0 metformin 1,000 mg Tablet 1,000 mg PO BIDM RF: 0 Humulin R Regular U-100 Insuln 100 unit/mL Solution 100 units subcut QPM RF: 0 ergocalciferol (vitamin D2) [Vitamin D2] 50,000 unit Capsule 50,000 unit PO UD RF: 0 insulin lispro [Humalog U-100 Insulin] 100 unit/mL Solution 30 unit SUBCUT DIRECTED RF: 0 insulin lispro [Humalog U-100 Insulin] 100 unit/mL Solution 55 units SUBCUT AMPM RF: 0 duloxetine 60 mg Capsule,Delayed Release(Dr/Ec) 60 mg PO QAM RF: 0 Trulicity 1.5 mg/0.5 mL Pen Injector 1.5 mg subcut WK RF: 0 No Action doxepin 10 mg Capsule 10 mg PO HS RF: 0 Humulin N NPH Insulin KwikPen 100 unit/mL (3 mL) Insulin Pen 100 unit SUBCUT HS RF: 0 Stand-Alone Forms: Call Back Authorization, [facility] Discharge Orders: Discharge Order (Routine); Ordered 09/09/18 Ordered By: Dajuan Durbin Admission Data Admit Date/Time: 09/06/18 23:50 Attending Provider: Dajuan Durbin Admit Provider: Ravin Boston Primary Care Provider: Eren Caal Other Providers: Ravin Boston ; Rajat Khan Service: Medical Other Interventions: Discharge Summary Assessment (RN) Last Done: 09/09/18 08:05 DC Date/Time DO NOT enter until pt leaves facility: 09/09/18 09:00
--- NOTE | 2018-09-10 00:53 | Progress Note ---
Date of Service September 10, 2018 Called from lab about pt's blood culture (06/09) growing gram positive bacilli Pt was treated with ertapenem/flagyl on admission which was dced on discharge Pt was called on number listed Pt's partner who was with her on admission responded and reported patient is sleeping but doing well Resident Activity Tracking Resident Involvement: Resident Care Provided Care Provided: Adult Hospital Medicine
== END 2018-09-09 09:00 | disposition home health service (06) | DRG 394 ==
LOC: ED 20:31 → 2E 23:50 → SUATTDRO 23:50 → 2E 09-07 01:10 → 4E 09-08 10:21

== ENCOUNTER 2019-11-03 07:19 | Observation (INO) ==
[2019-11-03] MEDS ORDERED: ASPIRIN CHEW 324 MG PO STA (07:40)
[2019-11-03 07:47] LABS: Basophils # (auto) 0.03 K/uL (0-0.2); Basophils % (auto) 0.3 %; Eosinophils # (auto) 0.06 K/uL (0-0.5); Eosinophils % (auto) 0.7 %; Hemoglobin 14.7 g/dL (12.0-16.0); Immature Granulocytes # (auto) 0.04 K/uL (0.00-0.02); Immature Granulocytes % (auto) 0.4 %; Lymphocytes # (auto) 2.64 K/uL (1.2-3.4); Lymphocytes % (auto) 28.9 %; Mean Corpuscular Hemoglobin 30.4 pg (25-34); Mean Corpuscular Hgb Conc 33.4 g/dL (32-36); Mean Corpuscular Volume 91.1 fL (80-100); Mean Platelet Volume 9.6 fL (7.4-10.4); Monocytes # (auto) 0.66 K/uL (0.11-0.59); Monocytes % (auto) 7.2 %; Neutrophils # (auto) 5.69 K/uL (1.4-6.5); Neutrophils % (auto) 62.5 %; Platelet Count 364 K/uL (130-400); RDW Coefficient of Variation 13.9 % (11.5-14.5); RDW Standard Deviation 45.5 fL (36.4-46.3); Red Blood Count 4.83 M/uL (4.2-5.4); White Blood Count 9.12 K/uL (4.8-10.8)
[2019-11-03] MEDS ORDERED: NITROGLYCERIN SL 0.4 MG/TAB TAB SL STA (07:58)
[2019-11-03 08:01] LABS: Alanine Aminotransferase 26 U/L (12-78); Albumin Level 4.1 gm/dl (3.4-5.0); BUN Creatinine Ratio 10.7 (10-20); Blood Urea Nitrogen 10 mg/dl (7-18); Calcium 9.8 mg/dl (8.5-10.1); Carbon Dioxide 25 mmol/L (21-32); Chloride 107 mmol/L (98-107); Creatinine Clr Calc Pharmacy 91.2 ml/min; Est GFR (African American) 83.3; Est GFR (Non-African American) 71.8; Glucose 139 mg/dl (70-99); Lipase 106 U/L (73-393); Sodium 141 mmol/L (136-145)
--- NOTE | 2019-11-03 08:03 | XRay Report ---
XR chest 1V portable CLINICAL HISTORY: Chest Pain pain COMPARISON STUDY: 09/06/2018 FINDINGS: Moderate cardiomegaly. Diaphragms are smooth. Lungs are considered clear. IMPRESSION: Moderate cardiac enlargement. Otherwise negative study. ACT 112: Negative or not required by law. The above report was generated using voice recognition software. It may contain grammatical, syntax or spelling errors. Electronically signed by: Bartolo Smyth M.D. 11/03/2019 8:02 AM
[2019-11-03 08:07] LABS: Alkaline Phosphatase 65 U/L (45-117); Bilirubin,Total 0.5 mg/dl (0.2-1); Globulin 4.2 gm/dl (2.5-4.0); Total Protein 8.3 gm/dl (6.4-8.2); Troponin I < 0.015 ng/ml (0-0.045)
[2019-11-03 08:24] LABS: Potassium 3.8 mmol/L (3.5-5.1)
[2019-11-03 08:31] LABS: Partial Thromboplastin Ratio 0.9; Prothrombin Time 10.8 Seconds (9.0-12.0)
--- NOTE | 2019-11-03 08:58 | History & Physical Report ---
Date of Service November 03, 2019 Assessment & Plan (1) Chest pain: In total her chest tightness/pain last about 90 minutes. It was substernal with radiation to her mid-back. Some associated dyspnea. Resolved upon EMS arrival to [facility], then returned (per the nursing report). Subsequently the pain went away with SL nitro x 1. Multiple CAD risk factors - HTN, prior tobacco use, hyperlipidemia, T2DM, morbid obesity. Multiple EKGs in ER with anterolateral ST changes. Plan - * serial troponins * echo * lipids and Hba1c in AM * continue all BP meds * asa 325mg given in ER; continue asa 81mg daily thereafter * depending on echo and troponins this will dictate stress test vs other testing * did have stress test in 2019 at [facility] that was reportedly negative If pain was not cardiac - GI in origin given her gastric sleeve status and mild epigastric tendernss? (2) Abnormal EKG: multiple EKGs this am with anterolateral ST changes. repeat EKG tomorrow am or with any chest pain. echo. see discussion above. (3) Diabetes mellitus, type 2: Cont lantus 50 units daily. Use novolog for meal-coverage; correction factor 20; carb ratio 1:6. BSGs ac/hs. Check Hba1c am. (4) GERD (gastroesophageal reflux disease): Consider increase in PPI to BID dosing if pain is felt to be GI in origin. of note - patient has had cholecystectomy in past and LFTs are normal today. (5) HLD (hyperlipidemia): Cont gemfibrozil Cont statin Check lipids in am (lipid panel well-controlled 07/2019 however) (6) HTN (hypertension): Cont home BP meds Adjust as needed (7) Intellectual delay: noted short stature, large neck - Ansari's syndrome? (8) Depression: Cont home meds no issues (9) Morbid obesity: BMI 56 Has lost over 100 pounds since her gastric sleeve procedure in 02/2019 (10) Gastric bypass status for obesity: Gastric sleeve 02/2019 [facility] - Dr Avendano (11) Sleep apnea: Cont home CPAP (12) DVT prophylaxis: lovenox 40mg daily place on observation status on telemetry History of Present Illness Chief Complaint: chest tightness Primary Care Provider: Eren Caal MD 44yo female with h/o morbid obesity and T2DM who presents with chest tightness that woke her from sleep this am about 0600. Went to bed feeling well last night. About 0600 woke with substernal chest tightness. Pain radiated to her back in the middle portion. [place] like a "jump roll operator sitting on my chest." Had associated shortness of breath. No pleuritic component to it. No nausea or vomiting. Pain did not radiate to neck or arms. No diaphoresis. No burping or belching. In the last few weeks denies any recent dyspnea, HENRIQUEZ or chest pain. Came to ER sometime after 7. Received SL nitro x 1 with resolution of symptoms. No recent travel. Had contact with a gentleman over the weekend - this person was coughing. He is a friend to his boyfriend. This gentleman had just been traveling in [place]? Patient denies fevers, chills, or cough. Had stress test in 2019 in preparation for gastric sleeve surgery. This was done at [facility]. Was told it was negative. Allergies Allergy/AdvReac Type Severity Reaction Status Date / Time Penicillins Allergy Severe seizures Verified 11/03/19 08:06 lactose Allergy Mild Abdominal Verified 11/03/19 08:06 Pain Home Medications Home Medications Medication Instructions Recorded Confirmed Type bupropion HCl [Wellbutrin SR] 150 mg PO QAM 03/03/18 11/03/19 History cyanocobalamin (vitamin B-12) 1,000 mcg IM MONTHLY 03/03/18 11/03/19 History duloxetine 60 mg PO QAM 03/03/18 11/03/19 History doxepin 10 mg PO HS 09/09/18 11/03/19 History bisacodyl 5 mg PO DAILY PRN 12/24/18 11/03/19 History metformin 1,000 mg tablet 1,000 mg PO BIDM 90 Days #180 tab 02/18/19 11/03/19 Rx gemfibrozil 600 mg tablet 600 mg PO BID #180 tab 03/17/19 11/03/19 Rx blood sugar diagnostic ea 07/27/19 10/05/19 History calcium carbonate 500 mg calcium 500 mg PO DAILY 07/27/19 11/03/19 History (1,250 mg) tablet lancets ea 07/27/19 10/05/19 History multivitamin 1 tab PO DAILY 07/27/19 11/03/19 History lisinopril 20 mg tablet 20 mg PO QAM #30 tab 08/18/19 11/03/19 Rx omeprazole 40 mg capsule,delayed 40 mg PO QAM #90 cap 08/29/19 11/03/19 Rx release pen needle, diabetic 32 gauge x #360 ea 09/13/19 10/05/19 Rx 5/32" pravastatin 40 mg tablet 40 mg PO HS #90 tab 10/13/19 11/03/19 Rx cholecalciferol (vitamin D3) 25 mcg PO DAILY 11/03/19 11/03/19 History dextrose [Dex4 Glucose] 15 g PO PRN PRN 11/03/19 11/03/19 History insulin glargine [Lantus Solostar 50 units SQ DAILY 11/03/19 11/03/19 History U-100 Insulin] insulin lispro [Humalog KwikPen 0 unit SQ TID MDD up to TDD 40 11/03/19 11/03/19 History Insulin] units Past Med/Surg History Medical History (Updated 11/03/19 @ 09:48 by Foreign Richey) Depression Diabetes mellitus, type 2 dx age 29 GERD (gastroesophageal reflux disease) Hypertension Incisional hernia (Inactive 05/09/13) SBO (small bowel obstruction) (Acute) Sleep apnea cpap Surgical History (Updated 11/03/19 @ 09:13 by Foreign Richey) Gastric bypass status for obesity 02/2019 - [facility]; gastric sleeve; initial weight ~400 pounds History of bowel resection exploratory lap. Dr. Alexy Ramos [facility] 04/13/15. History of cholecystectomy (Resolved) History of tonsillectomy (Resolved) History of tooth extraction all teeth removed Hx of eye surgery Hx of hernia repair RUQ subcostal incisional hernia Family History (Updated 11/03/19 @ 09:11 by Foreign Richey) Brother Family history of diabetes mellitus Depression COPD (chronic obstructive pulmonary disease) Mother Family history of diabetes mellitus Depression Hypertension Aunt CHF (congestive heart failure) Coronary heart disease Father , patient does not know his medical history No problems noted. 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 Beliefs That Will Affect Care: None marital status: Single Current Living Situation: Significant Other Current Living Situation Comment: lives w/ boyfriend in [place] current occupational status: disabled Other Information That Helps Us Care for You: No Feels Safe at Home: Yes Safety Concerns: Feels Safe At This Time Smoking Status: Former smoker Age Quit Using Tobacco: 35 ; packs per day: 0.5 ; Years Smoked: 15 ; Second Hand Exposure: No ; Hx Alcohol Use: No Hx Substance Use: No Review of Systems Constitutional: + weight loss (due to gastric sleeve procedure ); no fever, no chills, no fatigue and no anorexia Eyes: no worsening vision Ear, Nose, Mouth, Throat: no nasal congestion, no sore throat and no dysphagia Respiratory: no cough, no dyspnea, no dyspnea on exertion and no wheezing Cardiovascular: as per Subjective / HPI and + chest pain; no orthopnea and no paroxysmal nocturnal dyspnea Gastrointestinal: + diarrhea/loose stools; no abdominal pain, no heartburn, no nausea, no vomiting and no constipation Genitourinary: no dysuria Musculoskeletal: no joint pain and no myalgia Integumentary: no rash Neurologic: no localized weakness and no numbness Psychiatric: no depression Endocrine: diabetes - <250 Hematologic / Lymphatic: no easy bleeding and no easy bruising Allergy / Immunological: no seasonal rhinorrhea Physical Exam Constitutional: + morbidly obese; no acute distress and no altered mental status Eyes: + anicteric sclerae and PERRL ENMT: external ear and nose normal, oropharynx normal Neck: trachea midline, no thyromegaly Respiratory: normal respiratory effort, lungs clear to auscultation Cardiovascular: Rate/Rhythm: regular rate and regular rhythm Heart Sounds: normal S1 and normal S2; no murmur Vessels: posterior tibial pulses present and dorsalis pedis pulses present; no JVD Extremities: no edema Gastrointestinal (Abdomen): Inspection/Auscultation: + abdomen distended (mild) and normal bowel sounds Percussion/Palpation: + abdomen tender (high epigastric area) and + hernia (at least 2 - ventral - reducible ); no guarding and no hepatosplenomegaly Musculoskeletal: no cyanosis or clubbing, extremities motor strength 5/5 Skin: no rashes, warm and dry Neurologic: deep tendon reflexes 2+ bilaterally and moves all extremities; no focal motor deficits Psychiatric: Orientation: alert and oriented x 3 Lymphatic: no cervical lymphadenopathy Results & Data Results & Data ([facility]) Vital Signs (Past 12 Hours) Vital Signs Temp Pulse Pulse Resp BP BP Pulse Ox 11/03/19 08:35 90 22 124/82 97 11/03/19 07:48 90 22 97 11/03/19 07:38 94 H 22 97 11/03/19 07:24 37.4 C 90 22 133/86 99 Laboratory Results Laboratory Results - last 24 hr 11/03/19 11/03/19 11/03/19 07:31 07:31 07:31 WBC 9.12 RBC 4.83 Hgb 14.7 Hct 44.0 MCV 91.1 MCH 30.4 MCHC 33.4 RDW Std Deviation 45.5 RDW Coeff of Genaro 13.9 Plt Count 364 MPV 9.6 Immature Gran % (Auto) 0.4 Neut % (Auto) 62.5 Lymph % (Auto) 28.9 [place] % (Auto) 7.2 Eos % (Auto) 0.7 Baso % (Auto) 0.3 Immature Gran # (Auto) 0.04 H Neut # (Auto) 5.69 Lymph # (Auto) 2.64 [place] # (Auto) 0.66 H Eos # (Auto) 0.06 Baso # (Auto) 0.03 PT Cancelled INR Cancelled APTT Cancelled PTT Ratio Cancelled Sodium 141 Potassium Chloride 107 Carbon Dioxide 25 Anion Gap 9.0 BUN 10 Creatinine 0.95 Est Cr Clr Drug Dosing 91.2 Est GFR ( Amer) 83.3 Est GFR (Non-Af Amer) 71.8 BUN/Creatinine Ratio 10.7 Glucose 139 H Calcium 9.8 Total Bilirubin 0.5 AST ALT 26 Alkaline Phosphatase 65 Troponin I < 0.015 Total Protein 8.3 H Albumin 4.1 Globulin 4.2 H Albumin/Globulin Ratio 1.0 Lipase 106 11/03/19 11/03/19 08:08 08:09 WBC RBC Hgb Hct MCV MCH MCHC RDW Std Deviation RDW Coeff of [place]aro Plt Count MPV Immature Gran % (Auto) Neut % (Auto) Lymph % (Auto) [place] % (Auto) Eos % (Auto) Baso % (Auto) Immature Gran # (Auto) Neut # (Auto) Lymph # (Auto) [place] # (Auto) Eos # (Auto) Baso # (Auto) PT 10.8 INR 1.0 APTT 26.0 PTT Ratio 0.9 Sodium Potassium 3.8 Chloride Carbon Dioxide Anion Gap BUN Creatinine Est Cr Clr Drug Dosing Est GFR ( Amer) Est GFR (Non-Af Amer) BUN/Creatinine Ratio Glucose Calcium Total Bilirubin AST 10 L ALT Alkaline Phosphatase Troponin I Total Protein Albumin Globulin Albumin/Globulin Ratio Lipase Diagnostic Findings cxr - no infiltrates EKG - my reading - NSR, nonspecific ST depressions V3 to V6; a repeat EKG shows similar findings; inferior NS ST changes as well - unchanged from EKG from 2018 Code Status & VTE Plan Code Status full VTE Prophylaxis Plan VTE Prophylaxis will be ordered: Yes PG Care Time/CCT Total # of Minutes Spent Total Time Spent with Patient: Total time spent is greater than 50% in coordination of care (as documented) at patient's floor/unit and/or counseling patient: Coding Level of Care Code 72068 OBS Care - Level 3 Diagnoses Chest pain R07.9 Chest pain type: unspecified Abnormal EKG R94.31 Diabetes mellitus, type 2 E11.69; Z79.4 Diabetes mellitus correction insulin use: with long term acute care registered nurse use Diabetes mellitus complication status: with other specified complication GERD (gastroesophageal reflux disease) K21.9 Esophagitis presence: esophagitis presence not specified HLD (hyperlipidemia) E78.2 Hyperlipidemia type: mixed hyperlipidemia HTN (hypertension) I10 Hypertension type: essential hypertension Intellectual delay F81.9 Depression F32.89 Depression Type: other depression Morbid obesity E66.01 Gastric bypass status for obesity Z98.84 Sleep apnea G47.33 Sleep apnea type: obstructive DVT prophylaxis Z29.9 (1) Chest pain Chest pain type: unspecified Qualified Code(s): R07.9 - Chest pain, unspecified (2) Diabetes mellitus, type 2 Diabetes mellitus correction insulin use: with long term acute care registered nurse use Diabetes mellitus complication status: with other specified complication Qualified Code(s): E11.69 - Type 2 diabetes mellitus with other specified complication; Z79.4 - prison (current) use of insulin (3) GERD (gastroesophageal reflux disease) Esophagitis presence: esophagitis presence not specified Qualified Code(s): K21.9 - Gastro-esophageal reflux disease without esophagitis (4) HLD (hyperlipidemia) Hyperlipidemia type: mixed hyperlipidemia Qualified Code(s): E78.2 - Mixed hyperlipidemia (5) HTN (hypertension) Hypertension type: essential hypertension Qualified Code(s): I10 - Essential (primary) hypertension (6) Depression Depression Type: other depression Qualified Code(s): F32.89 - Other specified depressive episodes (7) Sleep apnea Sleep apnea type: obstructive Qualified Code(s): G47.33 - Obstructive sleep apnea (adult) (pediatric)
--- NOTE | 2019-11-03 10:43 | Emergency Department Note ---
History of Present Illness General Chief complaint: Chest Pain Time Seen by Provider: 11/03/19 07:32 Source: patient, EMS and RN notes reviewed Mode of arrival: EMS Limitations: no limitations History of Present Illness Provider complaint: Chest pain Onset (ago): hour(s) (1.5) This patient is a 44-year-old female who presents to the emergency department with complaints of left-sided chest discomfort that woke her from sleep at approximately 6 AM. Patient states the pain radiated through to her back but did not go to her extremities or her jaw. Patient is noted to be diaphoretic. She denies any significant nausea, vomiting or diarrhea. Patient has recently lost 100 pounds after a gastric sleeve surgery, but denies any overeating. Patient also denies any greasy or spicy foods recently. She does admit to some shortness of breath with exertion. She denies any significant cardiac history. She denies any recent fevers or cough. Home Medications Home Medications Medication Instructions Recorded Confirmed Type cyanocobalamin (vitamin B-12) 1,000 mcg IM MONTHLY 03/03/18 11/03/19 History duloxetine 60 mg PO QAM 03/03/18 11/03/19 History doxepin 10 mg PO HS 09/09/18 11/03/19 History bisacodyl 5 mg PO DAILY PRN 12/24/18 11/03/19 History metformin 1,000 mg tablet 1,000 mg PO BIDM 90 Days #180 tab 02/18/19 11/03/19 Rx gemfibrozil 600 mg tablet 600 mg PO BID #180 tab 03/17/19 11/03/19 Rx blood sugar diagnostic ea 07/27/19 10/05/19 History calcium carbonate 500 mg calcium 500 mg PO DAILY 07/27/19 11/03/19 History (1,250 mg) tablet lancets ea 07/27/19 10/05/19 History multivitamin 1 tab PO DAILY 07/27/19 11/03/19 History lisinopril 20 mg tablet 20 mg PO QAM #30 tab 08/18/19 11/03/19 Rx omeprazole 40 mg capsule,delayed 40 mg PO QAM #90 cap 08/29/19 11/03/19 Rx release pen needle, diabetic 32 gauge x #360 ea 09/13/19 10/05/19 Rx " pravastatin 40 mg tablet 40 mg PO HS #90 tab 10/13/19 11/03/19 Rx bupropion HCl 150 mg PO QAM 11/03/19 11/03/19 History cholecalciferol (vitamin D3) 25 mcg PO DAILY 11/03/19 11/03/19 History dextrose [Dex4 Glucose] 15 g PO PRN PRN 11/03/19 11/03/19 History insulin glargine [Lantus Solostar 50 units SQ DAILY 11/03/19 11/03/19 History U-100 Insulin] insulin lispro [Humalog KwikPen 0 unit SQ TID MDD up to TDD 40 11/03/19 11/03/19 History Insulin] units Allergies Allergy/AdvReac Type Severity Reaction Status Date / Time Penicillins Allergy Severe seizures Verified 11/03/19 08:06 lactose Allergy Mild Abdominal Verified 11/03/19 08:06 Pain Past Med/Surg History Medical History Depression Diabetes mellitus, type 2 dx age 29 GERD (gastroesophageal reflux disease) Hypertension Incisional hernia (Inactive 05/09/13) SBO (small bowel obstruction) (Acute) Sleep apnea cpap Surgical History Gastric bypass status for obesity 02/2019 - [facility]; gastric sleeve; initial weight ~400 pounds History of bowel resection exploratory lap. Dr. Alexy Ramos [facility] 04/13/15. History of cholecystectomy (Resolved) History of tonsillectomy (Resolved) History of tooth extraction all teeth removed Hx of eye surgery Hx of hernia repair RUQ subcostal incisional hernia Family History Brother Family history of diabetes mellitus Depression COPD (chronic obstructive pulmonary disease) Mother Family history of diabetes mellitus Depression Hypertension Aunt CHF (congestive heart failure) Coronary heart disease Father , patient does not know his medical history No problems noted. Other No family history of adverse response to anesthesia Social History Preferred Language: Libyan Communication Ability: Effective Temporary Help Agency Referral Clerk Required: No Beliefs That Will Affect Care: None marital status: Single Current Living Situation: Significant Other Current Living Situation Comment: lives w/ boyfriend in [place] current occupational status: disabled Other Information That Helps Us Care for You: No Feels Safe at Home: Yes Safety Concerns: Feels Safe At This Time Smoking Status: Former smoker Age Quit Using Tobacco: 35 ; packs per day: 0.5 ; Years Smoked: 15 ; Second Hand Exposure: No ; Hx Alcohol Use: No Hx Substance Use: No Review of Systems See HPI for pertinent positives & negatives. and A total of 10 systems reviewed and were otherwise negative Physical Exam Vital Signs Vital Signs - 24 hr 11/03/19 07:24 11/03/19 07:38 11/03/19 07:48 Temperature 37.4 C Temperature Source Oral Pulse Rate 90 94 H 90 Pulse Rate [Apical] Pulse Rhythm Regular Regular Regular Pulse Rhythm [Apical] Pulse Strength Normal Pulse Strength [Apical] Respiratory Rate 22 22 22 Respiratory Effort / Characteristics Non-Labored Spontaneous Respiratory Depth Normal Respiratory Pattern Regular Blood Pressure 133/86 Blood Pressure [Right Arm] Blood Pressure Mean 101 Blood Pressure Mean [Right Arm] Blood Pressure Position Sitting Blood Pressure Position [Right Arm] Pulse Oximetry 99 97 97 Oxygen Delivery Method Room Air Room Air Room Air Sepsis Recent Fever Within 48 Hours No Sepsis New/Unexplained Change in Mental Status No Sepsis Action Taken by Nursing No Action Required 11/03/19 08:35 11/03/19 09:14 Temperature Temperature Source Pulse Rate Pulse Rate [Apical] 90 90 Pulse Rhythm Pulse Rhythm [Apical] Regular Regular Pulse Strength Pulse Strength [Apical] Normal Normal Respiratory Rate 22 22 Respiratory Effort / Characteristics Non-Labored Spontaneous Non-Labored Spontaneous Respiratory Depth Normal Normal Respiratory Pattern Regular Regular Blood Pressure Blood Pressure [Right Arm] 124/82 144/77 H Blood Pressure Mean Blood Pressure Mean [Right Arm] 96 99 Blood Pressure Position Blood Pressure Position [Right Arm] Sitting Sitting Pulse Oximetry 97 97 Oxygen Delivery Method Room Air Room Air Sepsis Recent Fever Within 48 Hours Sepsis New/Unexplained Change in Mental Status Sepsis Action Taken by Nursing Vital signs reviewed. Noted to be hypertensive. General: Chronically ill-appearing 44-year-old female, diaphoretic but in no distress. HEENT: No scleral icterus, PERRLA, neck supple. Atraumatic. Cardiovascular: Regular rate and rhythm, no extra sounds. Pulmonary: Clear to auscultation bilaterally, normal work of breathing. Abdomen: Soft, obese, nontender, nondistended, positive bowel sounds. Musculoskeletal: Atraumatic, no peripheral edema. Neurologic: Patient awake alert and oriented x 3 Skin: Warm, dry, no rash Course Administered Medications Enoxaparin Sodium (Lovenox) 40 mg SQ Q24H TOMY Stop: 12/03/19 11:59 Last Admin: 11/03/19 12:45 Dose: 40 mg Documented by: [id number] Insulin Aspart (Novolog Flexpen) 0 units SC ACHS TOMY Stop: 12/03/19 11:29 Last Admin: 11/03/19 12:43 Dose: 5 units Documented by: [id number] Cosigned by: [id number] Pantoprazole Sodium (Protonix) 40 mg PO QAM TOMY Stop: 12/03/19 11:29 Last Admin: 11/03/19 12:45 Dose: 40 mg Documented by: [id number] Discontinued Medications Aspirin (Aspirin) 324 mg PO NOW STA Stop: 11/03/19 07:41 Last Admin: 11/03/19 07:47 Dose: Not Given Documented by: [id number] Nitroglycerin (Nitrostat) 0.4 mg SL NOW STA Stop: 11/03/19 07:59 Last Admin: 11/03/19 08:01 Dose: 0.4 mg Documented by: [id number] Medical Decision Making Differential Diagnosis DDx: Acute coronary syndrome, pulmonary embolus, aortic dissection, musculoskeletal pain, pneumonia, pleural effusion, pneumothorax, GERD, gastritis Medical Records Attestation: I reviewed the patient's medical records. Home Medications Current Medication List: was personally reviewed by me Laboratory Data Attestation: I reviewed the patient's lab results. Result diagrams: 11/03/19 07:31 11/03/19 08:09 Lab Results 11/03/19 11/03/19 11/03/19 Range/Units 07:31 07:31 07:31 WBC 9.12 (4.8-10.8) K/uL RBC 4.83 (4.2-5.4) M/uL Hgb 14.7 (12.0-16.0) g/dL Hct 44.0 (37-47) % MCV 91.1 (80-100) fL MCH 30.4 (25-34) pg MCHC 33.4 (32-36) g/dL RDW Std Deviation 45.5 (36.4-46.3) fL RDW Coeff of Genaro 13.9 (11.5-14.5) % Plt Count 364 (130-400) K/uL MPV 9.6 (7.4-10.4) fL Immature Gran % (Auto) 0.4 % Neut % (Auto) 62.5 % Lymph % (Auto) 28.9 % [place] % (Auto) 7.2 % Eos % (Auto) 0.7 % Baso % (Auto) 0.3 % Immature Gran # (Auto) 0.04 H (0.00-0.02) K/uL Neut # (Auto) 5.69 (1.4-6.5) K/uL Lymph # (Auto) 2.64 (1.2-3.4) K/uL [place] # (Auto) 0.66 H (0.11-0.59) K/uL Eos # (Auto) 0.06 (0-0.5) K/uL Baso # (Auto) 0.03 (0-0.2) K/uL PT Cancelled INR Cancelled APTT Cancelled PTT Ratio Cancelled Sodium 141 (136-145) mmol/L Potassium (3.5-5.1) mmol/L Chloride 107 (98-107) mmol/L Carbon Dioxide 25 (21-32) mmol/L Anion Gap 9.0 (3-11) BUN 10 (7-18) mg/dl Creatinine 0.95 (0.6-1.2) mg/dl Est Cr Clr Drug Dosing 91.2 ml/min Est GFR ( Amer) 83.3 Est GFR (Non-Af Amer) 71.8 BUN/Creatinine Ratio 10.7 (10-20) Glucose 139 H (70-99) mg/dl Calcium 9.8 (8.5-10.1) mg/dl Total Bilirubin 0.5 (0.2-1) mg/dl AST (15-37) U/L ALT 26 (12-78) U/L Alkaline Phosphatase 65 (45-117) U/L Troponin I < 0.015 (0-0.045) ng/ml Total Protein 8.3 H (6.4-8.2) gm/dl Albumin 4.1 (3.4-5.0) gm/dl Globulin 4.2 H (2.5-4.0) gm/dl Albumin/Globulin Ratio 1.0 (0.9-2) Lipase 106 (73-393) U/L 11/03/19 11/03/19 Range/Units 08:08 08:09 WBC (4.8-10.8) K/uL RBC (4.2-5.4) M/uL Hgb (12.0-16.0) g/dL Hct (37-47) % MCV (80-100) fL MCH (25-34) pg MCHC (32-36) g/dL RDW Std Deviation (36.4-46.3) fL RDW Coeff of Genaro (11.5-14.5) % Plt Count (130-400) K/uL MPV (7.4-10.4) fL Immature Gran % (Auto) % Neut % (Auto) % Lymph % (Auto) % [place] % (Auto) % Eos % (Auto) % Baso % (Auto) % Immature Gran # (Auto) (0.00-0.02) K/uL Neut # (Auto) (1.4-6.5) K/uL Lymph # (Auto) (1.2-3.4) K/uL [place] # (Auto) (0.11-0.59) K/uL Eos # (Auto) (0-0.5) K/uL Baso # (Auto) (0-0.2) K/uL PT 10.8 INR 1.0 APTT 26.0 PTT Ratio 0.9 Sodium (136-145) mmol/L Potassium 3.8 (3.5-5.1) mmol/L Chloride (98-107) mmol/L Carbon Dioxide (21-32) mmol/L Anion Gap (3-11) BUN (7-18) mg/dl Creatinine (0.6-1.2) mg/dl Est Cr Clr Drug Dosing ml/min Est GFR ( Amer) Est GFR (Non-Af Amer) BUN/Creatinine Ratio (10-20) Glucose (70-99) mg/dl Calcium (8.5-10.1) mg/dl Total Bilirubin (0.2-1) mg/dl AST 10 L (15-37) U/L ALT (12-78) U/L Alkaline Phosphatase (45-117) U/L Troponin I (0-0.045) ng/ml Total Protein (6.4-8.2) gm/dl Albumin (3.4-5.0) gm/dl Globulin (2.5-4.0) gm/dl Albumin/Globulin Ratio (0.9-2) Lipase (73-393) U/L Imaging Data Radiologist's Impression: XR chest 1V portable CLINICAL HISTORY: Chest Pain pain COMPARISON STUDY: 09/06/2018 FINDINGS: Moderate cardiomegaly. Diaphragms are smooth. Lungs are considered clear. IMPRESSION: Moderate cardiac enlargement. Otherwise negative study. ACT 112: Negative or not required by law. The above report was generated using voice recognition software. It may contain grammatical, syntax or spelling errors. Electronically signed by: Bartolo Smyth M.D. 11/03/2019 8:02 AM Dictated: 11/03/19800 Transcribed: 11/03/19800 ECG Data Attestation: I personally reviewed and interpreted this ECG as follows: Indication: + chest pain Rate (beats per minute): 91 Rhythm: + normal sinus ECG Intervals/blocks: no Normal QRS (low voltage) ECG [place]: + Right axis deviation ECG ST segments: + Normal ST segments and + T-wave inversions (Anterolateral) ECG Findings: no PACs and no PVCs Comparison ECG Date: from (03-03-18) Change: the following changes noted (T wave inversions anterior lateral are new. Rate has decreased by 21 bpm.) Additional Comments: EKG #2 at 7:57 AM Normal sinus rhythm 89 bpm. Rightward axis, low voltage, nonspecific ST and T wave changes, T wave inversions anterior lateral. No significant change from previous same day. Blood Pressure Blood Pressure Findings: Elevated blood pressure Blood Pressure Disposition: further management by hospitalist MDM Narrative This patient was evaluated and appeared to be in no significant distress. An order for cardiac monitoring was placed and the patient was found to be in a normal sinus rhythm at 94 bpm. Chest x-ray was obtained and revealed no evidence of acute process. Initial EKG reveals a sinus rhythm with T wave in the anterior and lateral leads. At the time of my evaluation, the patient was pain-free but notably diaphoretic. She did receive aspirin and 1 nitroglycerin prior to arrival. Initial troponin is negative. Patient did have recurrence of pain in the ED, EKG was repeated and no significant changes from earlier today were appreciated. She was given a second nitroglycerin tablet. A chest x-ray was performed and reveals no evidence of acute process. Patient was referred to the hospitalist service for further management. She is aware of the plan and agrees. Impression & Plan Intermittent left-sided chest pain, Acute electrocardiogram changes, Diabetes mellitus, insulin dependent (IDDM), controlled Discharge Plan Visit Data *Final* Discharge Date/Time: 11/03/19 10:38 Chief Complaint: Chest Pain ED Provider: Jesica Alegre Discharge Problem: Intermittent left-sided chest pain, Acute electrocardiogram changes, Diabetes mellitus, insulin dependent (IDDM), controlled Patient Disposition: Admitted As Inpatient Discharge Instructions Interventions: ED Discharge Assessment Last Done: 11/03/19 10:38
[2019-11-03] MEDS ORDERED: ONDANSETRON INJ 2 MG/ML 2 ML VIAL IV PRN (11:06)
[2019-11-03] MEDS ORDERED: NITROGLYCERIN SL 0.4 MG/TAB TAB SL PRN (11:06)
[2019-11-03] MEDS ORDERED: ALUMINUM/MAGNESIUM SUSP 30 ML UDC PO PRN (11:06)
[2019-11-03] MEDS ORDERED: ACETAMINOPHEN 325 MG TAB PO PRN (11:06)
[2019-11-03] MEDS ORDERED: bisacodyL 5 MG TABEC PO PRN (11:06)
[2019-11-03] MEDS ORDERED: NURSING DECISION MEDICATION ONE (11:36)
[2019-11-03] MEDS ORDERED: MICONAZOLE NITRATE POWDER 43 GM EXT PRN (11:39)
[2019-11-03] MEDS ORDERED: CARBOHYDRATES FOR HYPOGLYCEMIA PO PRN (12:00)
[2019-11-03] MEDS ORDERED: GLUCOSE 40% GEL 15 GM TUBE PO PRN (12:00)
[2019-11-03] MEDS ORDERED: DEXTROSE 50% 50 ML SYRINGE IV PRN (12:00)
[2019-11-03] MEDS ORDERED: GLUCOSE 10 TABS/TUBE PO PRN (12:00)
[2019-11-03] MEDS ORDERED: GLUCAGON FOR INJ 1 MG VIAL IM PRN (12:00)
[2019-11-03] MEDS: INSULIN ASPART 100 UNITS/ML 3 ML PEN SC SCH ×3 (12:43→21:36)
[2019-11-03] MEDS: PANTOprazole 40 MG TAB PO SCH (12:45)
[2019-11-03] MEDS: ENOXAPARIN INJ 40 MG/0.4 ML SYR SQ SCH (12:45)
--- NOTE | 2019-11-03 16:21 | Communication Note ---
Date of Service: November 03, 2019 2nd troponin negative. Echo done; results pending. Spoke with patient; reviewed plan of care including stress echo in am. She has had NO recurrent chest symptoms since admission. Ate lunch without any abdominal pain. Continue to monitor. Foreign Richey MD
--- NOTE | 2019-11-03 17:01 | XCELERA ---
[id number] \\[id number]___[id number]
[2019-11-03] MEDS ORDERED: INSULIN GLARGINE SOLOSTAR 100 UNITS/ML 3 ML PEN SQ SCH (21:00)
[2019-11-03] MEDS ORDERED: DOXEPIN HCL 10 MG CAPSULE PO SCH (21:00)
[2019-11-03] MEDS ORDERED: PRAVASTATIN SOD 40 MG TAB PO SCH (21:00)
[2019-11-03] MEDS: gemfibroziL 600 MG TAB PO SCH (21:34)
--- NOTE | 2019-11-04 06:22 | Electrocardiogram Report ---
Test Reason : Blood Pressure : / mmHG Vent. Rate : 089 BPM Atrial Rate : 089 BPM P-R Int : 140 ms QRS Dur : 090 ms QT Int : 362 ms P-R-T Axes : 009 098 242 degrees QTc Int : 440 ms Normal sinus rhythm Rightward axis Low voltage QRS Abnormal ECG When compared with ECG of 03-NOV-2019 07:24, T wave inversion now evident in Anterior leads Confirmed by Vidal Marcos ([id number]) on 11/04/2019 6:21:38 AM Referred By: REFERRED SELF Confirmed By:Vidal Marcos
--- NOTE | 2019-11-04 06:24 | Electrocardiogram Report ---
Test Reason : Blood Pressure : / mmHG Vent. Rate : 084 BPM Atrial Rate : 084 BPM P-R Int : 142 ms QRS Dur : 092 ms QT Int : 362 ms P-R-T Axes : 015 085 238 degrees QTc Int : 427 ms Normal sinus rhythm Low voltage QRS Abnormal ECG When compared with ECG of 03-NOV-2019 07:57, No significant change was found Confirmed by Vidal Marcos ([id number]) on 11/04/2019 6:24:06 AM Referred By: REFERRED SELF Confirmed By:Vidal Marcos
[2019-11-04] MEDS: gemfibroziL 600 MG TAB PO SCH (07:44)
[2019-11-04] MEDS: PANTOprazole 40 MG TAB PO SCH (07:45)
[2019-11-04] MEDS ORDERED: ATROPINE SULFATE 0.1 MG/ML 10ML SYR IV ONE (08:34)
[2019-11-04] MEDS ORDERED: DOBUTamine HCL 12.5 MG/ML 20 ML VIAL IV ONE (08:35)
[2019-11-04] MEDS ORDERED: METOPROLOL TARTRATE 1 MG/ML VIAL IV ONE (08:35)
[2019-11-04] MEDS: INSULIN ASPART 100 UNITS/ML 3 ML PEN SC SCH ×2 (08:51→12:58)
[2019-11-04] MEDS ORDERED: MULTIVITAMIN TAB PO SCH (09:00)
[2019-11-04] MEDS ORDERED: BuPROPion XL 150 MG TABCR PO SCH (09:00)
[2019-11-04] MEDS ORDERED: ASPIRIN 81 MG ECTAB PO SCH (09:00)
[2019-11-04] MEDS ORDERED: lisinopriL 20 MG TAB PO SCH (09:00)
[2019-11-04] MEDS ORDERED: CALCIUM CARBONATE 1250MG TAB PO SCH (09:00)
[2019-11-04] MEDS ORDERED: DULOXETINE HCL 60 MG CAP PO SCH (09:00)
[2019-11-04 09:20] LABS: Chol HDL Ratio 5; Cholesterol 172 mg/dl (0-200); HDL Cholesterol 32 mg/dl; LDL Cholesterol Calculated 96 mg/dl; Triglycerides 221 mg/dl (0-150); VLDL Cholesterol 44 mg/dl
[2019-11-04 09:58] LABS: Estimated Average Glucose 151 mg/dl; Hemoglobin A1C 6.9 % (4.5-5.6)
[2019-11-04] MEDS: ENOXAPARIN INJ 40 MG/0.4 ML SYR SQ SCH (12:59)
--- NOTE | 2019-11-04 14:35 | XCELERA ---
[id number] \\[id number]___[id number]
--- NOTE | 2019-11-04 14:55 | Discharge Summary ---
Date of Service November 04, 2019 Admission HPI Per Admitting Provider 44yo female with h/o morbid obesity and T2DM who presents with chest tightness that woke her from sleep this am about 0600. Went to bed feeling well last night. About 0600 woke with substernal chest tightness. Pain radiated to her back in the middle portion. [place] like a "certifier sitting on my chest." Had associated shortness of breath. No pleuritic component to it. No nausea or vomiting. Pain did not radiate to neck or arms. No diaphoresis. No burping or belching. In the last few weeks denies any recent dyspnea, HENRIQUEZ or chest pain. Came to ER sometime after 7. Received SL nitro x 1 with resolution of symptoms. No recent travel. Had contact with a gentleman over the weekend - this person was coughing. He is a friend to his boyfriend. This gentleman had just been traveling in [place]? Patient denies fevers, chills, or cough. Had stress test in 2019 in preparation for gastric sleeve surgery. This was done at [facility]. Was told it was negative. Admission Exam Per Admitting Provider Constitutional: + morbidly obese; no acute distress and no altered mental status Eyes: + anicteric sclerae and PERRL ENMT: external ear and nose normal, oropharynx normal Neck: trachea midline, no thyromegaly Respiratory: normal respiratory effort, lungs clear to auscultation Cardiovascular: Rate/Rhythm: regular rate and regular rhythm Heart Sounds: normal S1 and normal S2; no murmur Vessels: posterior tibial pulses present and dorsalis pedis pulses present; no JVD Extremities: no edema Gastrointestinal (Abdomen): Inspection/Auscultation: + abdomen distended (mild) and normal bowel sounds Percussion/Palpation: + abdomen tender (high epigastric area) and + hernia (at least 2 - ventral - reducible ); no guarding and no hepatosplenomegaly Musculoskeletal: no cyanosis or clubbing, extremities motor strength 5/5 Skin: no rashes, warm and dry Neurologic: deep tendon reflexes 2+ bilaterally and moves all extremities; no focal motor deficits Psychiatric: Orientation: alert and oriented x 3 Lymphatic: no cervical lymphadenopathy Principal Diagnosis atypical chest pain Discharge Exam Constitutional WD/WN, vitals as above Respiratory normal respiratory effort, lungs clear to auscultation Cardiovascular RRR, no murmur, no edema Gastrointestinal (Abdomen) normal bowel sounds, soft, nontender, no hepatosplenomegaly softball-sized ventral hernia, reducible Skin no rashes, warm and dry Psychiatric A+Ox3, euthymic affect Discharge Data Allergies Allergy/AdvReac Type Severity Reaction Status Date / Time Penicillins Allergy Severe seizures Verified 11/03/19 08:06 Consultations 11/03/19 08:57 ED Decision to Admit Stat Hospital Course (1) Atypical chest pain: 44 yo F PMHx HTN, HLD, morbid obesity s/p sleeve gastrectomy, DM2 on insulin therapy, RANDY, intellectual delay admitted for chest pain rule out. Atypical chest pain: - Patient admitted for follow up of cardiac enzymes and stress Echo. - dobutamine stress test without signs of ischemia. - troponins negative x2, patient asymptomatic at this time. - CXR without signs of pneumonia, other lung pathology. - Hgb A1c 6.9%, lipid panel: TG 221, total cholesterol 172, LDL 96, HDL 32 (onpravastatin 40mg daily). - Unclear etiology of pressure sensation at this time. Possible GERD vs. anxiety vs. pressure sensation from her benign goiter. - Continue home medications, no medication changes made this admission. Dispo: home with self-care (2) Diabetes mellitus, insulin dependent (IDDM), controlled: (3) Gastric bypass status for obesity: (4) Depression: (5) Sleep apnea: (6) GERD (gastroesophageal reflux disease): (7) HTN (hypertension): (8) HLD (hyperlipidemia): (9) Ventral hernia: Total Time Total Time Spent Total Time Spent (In Minutes): <30 Discharge Plan Discharge Items Patient Disposition: Home - Self-Care Reason For Visit: CHEST PAIN Discharge Diagnosis: atypical chest pain Activity: Per Instructions section Non-emergency contact: Primary Care Provider Call non-emergency contact if: your symptoms worsen Follow-up/Referrals: ProEren MD [Primary Care Provider] - Diet: Carb Consistent or DM2 Addtl Attending Provider Instructions: You were admitted to the hospital for heart monitoring after having some chest tightness. We followed your heart labwork which stayed normal throughout your admission. Your heart rate and rhythm was normal during your admission. You had a stress Echocardiogram, which showed no heart abnormalities. Your chest xray did not show any pneumonia or other lung problems that would explain your symptoms. You did not have any more symptoms and after ruling out heart and lungs causes we felt safe discharging you home. Please follow up with your family doctor by calling their office for an appointment within the next 10 days. Pending Studies at Discharge: No Stand-Alone Forms: [facility], Smoking Cessation Medications and DC Order Prescriptions: Continued metformin 1,000 mg tablet 1,000 mg PO BIDM 90 Days Qty: 180 RF: 3 gemfibrozil 600 mg tablet 600 mg PO BID Qty: 180 RF: 3 lisinopril 20 mg tablet 20 mg PO QAM Qty: 30 RF: 5 omeprazole 40 mg capsule,delayed release(DR/EC) 40 mg PO QAM Qty: 90 RF: 1 (DME) pen needle, diabetic [BD Ultra-Fine [place] Pen Needle] 32 gauge x 5/32" needle See Rx Instructions [id number] .MEDSUPPLY Qty: 360 RF: 3 pravastatin 40 mg tablet 40 mg PO HS Qty: 90 RF: 1 (DME) Accu-Chek Christine Plus test strp Strip See Rx Instructions .ROUTE .MEDSUPPLY RF: 0 (DME) lancets [Accu-Chek Fastclix Lancet Drum] Misc See Rx Instructions .ROUTE .MEDSUPPLY RF: 0 multivitamin Tablet 1 tab PO DAILY RF: 0 calcium carbonate [Calcium 500] 500 mg calcium (1,250 mg) tablet 500 mg PO DAILY RF: 0 bisacodyl 5 mg Tablet 5 mg PO DAILY PRN (Reason: Constipation) RF: 0 cyanocobalamin (vitamin B-12) 1,000 mcg/mL Solution 1,000 mcg IM MONTHLY RF: 0 duloxetine 60 mg Capsule,Delayed Release(Dr/Ec) 60 mg PO QAM RF: 0 doxepin 10 mg Capsule 10 mg PO HS RF: 0 cholecalciferol (vitamin D3) 25 mcg (1,000 unit) Capsule 25 mcg PO DAILY RF: 0 insulin lispro [Humalog KwikPen Insulin] 100 unit/mL insulin pen 0 unit SQ TID MDD up to TDD 40 units RF: 0 Lantus Solostar U-100 Insulin 100 unit/mL (3 mL) insulin pen 50 units SQ DAILY RF: 0 dextrose [Dex4 Glucose] 15 gram/59 mL liquid 15 g PO PRN PRN (Reason: Hypoglycemia) RF: 0 bupropion HCl 150 mg tablet extended release 24 hr 150 mg PO QAM RF: 0 Discharge Orders: Discharge Order (Routine); Ordered 11/04/19 Ordered By: Nirali Giraldo Admission Data Admit Date/Time: 11/03/19 09:43 Attending Provider: Genaro Shrestha Admit Provider: Foreign Richey Primary Care Provider: Eren Caal Other Providers: Yohannes Graff ; Foreign Richey Other Interventions: Discharge Summary Assessment (RN) Last Done: 11/04/19 15:06 DC Date/Time DO NOT enter until pt leaves facility: 11/04/19 15:22 Supervising Physician Co-Signing Physician Notes I personally examined the patient and verified all prabhakar points of history and exam, discussed case, and agree with decision making with Dr Jason. feeling better, feels up to going home, feels safe at home. relates she's going to have more work done on her stomach by a doc in [place] over the summer. vitals noted nad heent nc at mmm breathing unlabored no accessory muscles good effort skin no rashes no pallor or icterus neuro no focal deficits. chest pain - likely upper GI. cardiac w/u reassuring. stable for home. secondary risk reduction. Resident Activity Tracking Resident Involvement: Resident Care Provided Care Provided: Adult Hospital Medicine
--- NOTE | 2019-11-04 15:46 | Billing Data ---
Date of Service November 04, 2019 Coding Level of Care Code 16821 OBS Care - Discharge
--- NOTE | 2019-11-04 16:56 | Electrocardiogram Report ---
Test Reason : Blood Pressure : / mmHG Vent. Rate : 085 BPM Atrial Rate : 085 BPM P-R Int : 144 ms QRS Dur : 094 ms QT Int : 370 ms P-R-T Axes : 018 087 242 degrees QTc Int : 440 ms Normal sinus rhythm Low voltage QRS Abnormal ECG When compared with ECG of 03-NOV-2019 09:29, No significant change was found Confirmed by Eren Avila ([id number]) on 11/04/2019 4:55:56 PM Referred By: REFERRED SELF Confirmed By:Eren Avila
== END 2019-11-04 15:22 | disposition home or self-care (01) ==
LOC: ED 07:19 → 2N 07:19 → SUATTDRO 09:43 → 2N 10:38